=== PATIENT | female | born 1935 | race Caucasian/White ===

== ENCOUNTER → 2017-01-05 | Outpatient (CLI) | payer MEDICARE, OTHER ==
[~2017-01-05] MED LIST: BISA10SU8 RECTALLY; CRAN405C PO; DIVA125C PO; GABA100C PO; HALOPERIDOL IM; HYDR-3989 PO; HYDR-4246 PO; LEVO50TA11 PO; LIDO76.5 TOP; LORA0.5T86 PO; LORA2DIS6 TOP; MAGN400O4 PO; MEMA10TA12 PO; MENT118G TOP; MIRT15TA6 PO; POLY17PO6 PO; POTA10CA37 PO; PROP10TA10 PO; QUET25TA PO; SENN-152 PO; SULF1TAB42 PO
== END ==
LOC: LABNH.PM 02:20
PROVIDERS: ATTEND Family Medicine
DX: E03.9 Hypothyroidism, unspecified (principal)
CPT/HCPCS: 36415; 84443; P9604

== ENCOUNTER → 2017-01-19 | Outpatient (CLI) | payer MEDICARE, OTHER ==
[2017-01-19 07:26] LABS: ANION GAP 10 MEQ/L (5-15); BUN/CREATININE RATIO 40 RATIO (6-26); CALCIUM 8.8 MG/DL (8.4-10.2); CHLORIDE 109 MEQ/L (98-107); CO2 - CARBON DIOXIDE 28 MEQ/L (22-30); CREATININE 0.7 MG/DL (0.7-1.2); GLOMERULAR FILTRATION RATE 80; GLUCOSE 83 MG/DL (65-110); POTASSIUM 3.9 MEQ/L (3.6-5); SODIUM 147 MEQ/L (134-144)
[2017-01-19 07:35] LABS: PROBNP 311 PG/ML (0-175)
== END ==
LOC: LABNH.PM 06:53
PROVIDERS: ATTEND Family Medicine
DX: R60.0 Localized edema (principal)
CPT/HCPCS: 36415; 80048; 83880; P9604

== ENCOUNTER 2017-02-01 09:30 | Inpatient (IN) | payer MEDICARE, OTHER, MEDICAID ==
[~2017-02-01] VITALS: Ht 162.6 cm; Wt 55.2 kg
--- OUTSIDE RECORDS SUMMARY | 2017-02-01 09:34 | XMS REPORT ---
Author Author Yousif Kelly Organization [employer] Address Unknown Phone Unavailable Care Team Providers Care District Attorney Name Role Phone Yousif Kelly CP Unavailable Allergies, Adverse Reactions, Alerts Substance Reaction Event Type Penicillin Info Not Available Drug Allergy Problems Problem Type Condition Code Onset Dates Condition Status Assessment Encounter for dental examination and cleaning without abnormal findings Z01.20 Active Medications Medication Code System Code Instructions Start Date End Date Status Dosage Synthroid [facility] [id number] not defined Aspercreme [facility] [id number] not defined Fontana [facility] [id number] not defined Namenda [facility] [address]-51 not defined Seroquel [facility] [address]-37 not defined Potassium Chloride [facility] [id number] not defined Bisacodyl [facility] [address] not defined Pyridium [facility] [address]-31 not defined Neurontin [facility] [address]-68 not defined Remeron [facility] [address]-46 not defined Depakote Sprinkles [facility] [id number] not defined Lorazepam [facility] [address]-57 not defined MiraLax [facility] [address]-29 not defined Cranberry [facility] [address] not defined Propranolol HCl [facility] [id number] not defined Procedures Procedure Coding System Code Date PROPHYLAXIS - ADULT CPT-4 D1110 Sep 01, 2016 TOPICAL FLUORIDE VARNISH CPT-4 D1206 Sep 01, 2016 Results No Known Results Summary Purpose [employer] Submission
--- OUTSIDE RECORDS SUMMARY | 2017-02-01 09:34 | XMS REPORT | Continuity of Care Document ---
Author Author [facility] Organization [facility] Address Unknown Phone Unavailable Support Name Relationship Address Phone ART UNGER MD Caregiver [address] [place] [address] [place] [phone] Unavailable WALLY HORN MD Caregiver [address] [place] [address] [place] [address] Unavailable WALLY HORN MD Caregiver [address] [place] [address] [place] [address] Unavailable RENEE ENGLE MD Caregiver [address] [place] [address] Unavailable PANCHO BELTRAN Next Of Kin [address] [place] [address] Insurance Providers Guarantor Huong Beltran Address [address] [place] [address] Email DENIED/NO PORTAL Payer Medicare Policy Number [id number] Subscriber's Name Huong Beltran Relationship 18 Self Effective Date 01 Payer Other A Insurance Policy Number [id number] Subscriber's Name Franky,Huong Garcia Relationship 18 Self Group Number [id number] Advance Directives Directive Response Recorded Date/Time Advanced Directives Type DNR Documentation DPOA for Healthcare 02/19/16 10:15am Ordered Resuscitation Status Full Code, unverified 02/19/16 11:54am Resuscitation Documents on File Yes 02/19/16 12:56pm DPOA for Healthcare Only Y LEONARD 02/19/16 12:56pm Problems Active Problems Medical Problem Onset Date Status Abdominal pain Unknown Acute CAD (coronary artery disease) Unknown Chronic Constipation Unknown Acute Contusion Unknown Acute Dementia Unknown Chronic HCAP (healthcare-associated pneumonia) Unknown Acute Head injury Unknown Acute Hyperthyroidism Unknown Chronic Hypokalemia Unknown Acute Neck muscle strain Unknown Acute Recent urinary tract infection Unknown Chronic Past Problems Medical Problem Onset Date Left lower lobe pneumonia Unknown Medications Current Home Medications Medication Dose Units Route Directions Days Qty Instructions Start Date Acetaminophen 500 Mg Tablet 500 Mg Oral Every 4 Hours as needed for Pain 12/19/15 Acetaminophen 500 Mg Tablet 500 Mg Oral Three Times A Day Ativan Topical 1 Mg Topically Every 4 Hours as needed for Anxiety 10/08/15 Bisacodyl 10 Mg Supp.rect 1 Supp Rectally Daily as needed for Constipation 02/19/16 Cephalexin 500 Mg Tablet 1 Tab Oral Three Times A Day for Pneumonia 21 Tablet 02/20/16 Cranberry Extract (Cranberry) 405 Mg Capsule 405 Mg Oral Twice A Day 02/19/16 Divalproex Sodium 125 Mg Cap.sprink 250 Mg Oral Three Times A Day 12/19/15 Gabapentin (Neurontin) 100 Mg Capsule 100 Mg Oral Three Times A Day 09/25/15 Haldol 2.5MG/Ml 0.5 Ml Intramusc Every 6 Hours as needed for Agitation 12/19/15 Hydrocodone/Acetaminophen (Hydrocodon-Acetaminophen 5-325) 1 Each Tablet 1 Tab Oral Three Times A Day as needed for Pain 02/19/16 Levothyroxine Sodium 50 Mcg Tablet 50 Mcg Oral Daily 12/19/15 Memantine Hcl (Namenda) 10 Mg Tablet 10 Mg Oral Twice A Day 09/25 Mirtazapine 15 Mg Tablet 7.5 Mg Oral Bedtime Take 1 tablet, by mouth , 1 time a day at bedtime. 02/19/16 Polyethylene Glycol 3350 (Miralax) 17 Gm Powd.pack 17 G Oral Daily 10/08/15 Propranolol Hcl 10 Mg Tablet 10 Mg Oral Twice A Day 09/25/15 Quetiapine Fumarate 50 Mg Tablet 50 Mg Oral Twice A Day EVERY AFTERNOON AND HS 12/19/15 Sennosides/Docusate Sodium (Senna Plus Tablet) 1 Tab Tablet 2 Tab Oral Twice A Day 10/08/15 Past Home Medications Medication Directions Ordered Status Nitrofurantoin Monohyd/M-Cryst (Nitrofurantoin Simpson-Mcr 100 Mg) 100 Mg Capsule , 100 Mg Oral Twice A Day 02/19/16 Discontinued Social History Social History Problem Response Recorded Date/Time Onset Date Status Hx Substance Use No 02/19/2016 10:15am Not Applicable Not Applicable Hx Alcohol Use No 02/19/2016 10:15am Not Applicable Not Applicable Tobacco Usage none 02/19/2016 1:03pm Not Applicable Not Applicable Query Response Start Date Stop Date Smoking Status Never smoker Hospital Discharge Instructions Instructions: Care Instructions: Reason for Hospitalization: Pneumonia I was in the hospital because (patient own words): UNABLE TO STATE Discharge Diet: Mech soft/Ground meat; regular liquids Discharge Activity: As tolerated Follow Up Appointments: Dr Engle in 1 week Pending Lab / Results: Follow up w/ your PCP Condition at time of discharge: Good Plan of Care Discharge Date 02/20/16 2:46pm Disposition 04 TO [facility] Instructions/Education Provided DI for Pneumonia -- Adult Prescriptions See Medication Section Care Plan and Goals See Discharge Instructions Section Functional Status Query Response Date Recorded Mobility Status Ambulatory w/assist February 19, 2016 12:53pm Assistive Devices None February 19, 2016 12:53pm Activity Limitations Weakness February 19, 2016 12:53pm Feeding Ability Assist February 19, 2016 12:53pm Toileting Ability Assist February 19, 2016 12:53pm Grooming Ability Assist February 19, 2016 12:53pm Dressing Ability Assist February 19, 2016 12:53pm Driving Ability Dependent February 19, 2016 12:53pm Housework Ability Dependent February 19, 2016 12:53pm Meal Preparation Ability Dependent February 19, 2016 12:53pm Stair Climbing Ability Dependent February 19, 2016 12:53pm Ability to complete ADL's impeded by Impaired Mobility Change in Cognition February 19, 2016 12:56pm Cognitive/Perceptual Impairments Impaired vision Chronic confusion February 19, 2016 12:53pm Visual Assistive Devices Glasses February 19, 2016 12:53pm Preferred Method of Learning Listening February 19, 2016 12:53pm Allergies, Adverse Reactions, Alerts Allergen Type Severity Reaction Status Last Updated Penicillin Allergy Unknown Active 02/19/16 Immunizations Query Response on File Recorded Date/Time Hx Influenza Vaccination No 02/19/16 12:58pm Hx Pneumococcal Vaccination No 02/19/16 12:58pm Hx Influenza Vaccination No 02/19/16 12:58pm Influenza Vaccine Hx unknown 02/20/16 12:29pm Tdap Vaccine Hx UNKNOWN 10/08/15 7:31pm Vital Signs Acute Vital Signs Vital Response Date/Time Temperature (Fahrenheit) 98.5 deg F (96.8 - 99.1) 02/20/2016 7:32am Temperature (Calculated Celsius) 36.92630 degrees C (36.0 - 37.3) 02/20/2016 7:32am Pulse Rate (adult) 78 bpm (60 - 100) 02/20/2016 7:58am Respiratory Rate 18 breaths/min (10 - 20) 02/20/2016 7:58am O2 Sat by Pulse Oximetry 95 % (90 - 100) 02/20/2016 7:32am Oxygen Delivery Method Room Air 02/20/2016 7:32am Blood Pressure 132/67 mm Hg 02/20/2016 7:32am Blood Pressure Source Automatic Cuff 02/20/2016 7:32am Height (Feet) 5 feet 02/20/2016 9:40am Height (Inches) 3.00 inches 02/20/2016 9:40am Weight (Kilograms) 51.200 kg 02/20/2016 1:59pm Body Mass Index (BMI) 19.2 02/19/2016 12:55pm Results Laboratory Results Test Name Result Units Flags Reference Collection Date/Time Result Date/ Time Comments Urine WBC 1-3 /HPF 0-5 01/22/2016 9:01/22/2016 10:38am Urine RBC NONE SEEN /HPF 0-3 01/22/2016 9:01/22/2016 10:38am Urine Squamous Epithelial Cells 0-5 01/22/2016 9:20am 01/22/2016 10 :38am Urine Bacteria 3+ H NEGATIVE 01/22/2016 9:01/22/2016 10:38am Urine Amorphous Phosphates MODERATE 01/22/2016 9:20am 01/22/2016 10 :38am Urine Culture Indicated CULT REFLEXED &SETUP 01/22/2016 9: 10:38am White Blood Count 5.5 T/MM3 4.5-11.0 02/20/2016 4:29am 02/20/2016 4: 51am Red Blood Count 3.37 M/MM3 L 4.00-5.20 02/20/2016 4:29am 02/20/2016 4: 51am Hemoglobin 10.7 GM/DL D L 12-16 02/20/2016 4:am 02/20/2016 4:52am Hematocrit 33.4 % D L 36-46 02/20/2016 4:29am 02/20/2016 4:52am Mean Corpuscular Volume 99.1 UM3 80-100 02/20/2016 4:29am 02/20/2016 4: 51am Mean Corpuscular Hemoglobin 31.8 UUG 26-34 02/20/2016 4:29am 2015 4:51am Mean Corpuscular Hemoglobin Concent 32.0 GM/DL 31-37 02/20/2016 4:02/20/2016 4:51am RDW Standard Deviation 43.6 FL 36.9-50.2 02/20/2016 4:02/20/2016 4 :51am Platelet Count 167 T/MM3 130-400 02/20/2016 4:02/20/2016 4:51am Mean Platelet Volume 9.5 UM3 9.4-12.4 02/20/2016 4:02/20/2016 4: 51am Neutrophils (%) (Auto) 57.3 % 33-66 02/20/2016 4:02/20/2016 4: 51am Lymphocytes (%) (Auto) 27.6 % 23-45 02/20/2016 4:02/20/2016 4: 51am Monocytes (%) (Auto) 11.8 % H 0-9.0 02/20/2016 4:02/20/2016 4:51am Eosinophils (%) (Auto) 2.7 % 0-4 02/20/2016 4:02/20/2016 4:51am Basophils (%) (Auto) 0.2 % 0-2 02/20/2016 4:02/20/2016 4:51am Immature Granulocyte % (Auto) 0.4 % 0.0-0.5 02/20/2016 4:2015 4:51am Absolute Neutrophils (auto) 3.2 T/MM3 1.8-7.7 02/20/2016 4:2015 4:51am Absolute Lymphocytes (auto) 1.5 T/MM3 1-4.8 02/20/2016 4:2015 4:51am Absolute Monocytes (auto) 0.7 T/MM3 0-0.8 02/20/2016 4:02/20/2016 4:51am Absolute Eosinophils (auto) 0.2 T/MM3 0-0.5 02/20/2016 4:2015 4:51am Absolute Basophils (auto) 0.0 T/MM3 0-0.2 02/20/2016 4:02/20/2016 4:51am Absolute Immature Granulocyte (auto 0.02 T/MM3 0.00-0.03 02/20/2016 4: 02/20/2016 4:51am Icterus Index < 2 0-7 02/20/2016 4:02/20/2016 5:04am Chemistry Specimen Hemolysis < 15 0-25 02/20/2016 4:02/20/2016 5 :04am 0-25: Specimen Exhibited No Hemolysis. Turbidity < 20 0-20 02/20/2016 4:02/20/2016 5:04am Sodium Level 140 MEQ/L 134-144 02/20/2016 4:02/20/2016 5:04am Potassium Level 3.4 MEQ/L L 3.6-5 02/20/2016 4:02/20/2016 5:04am Chloride Level 108 MEQ/L H 98-107 02/20/2016 4:02/20/2016 5:04am Carbon Dioxide Level 27 MEQ/L 22-30 02/20/2016 4:02/20/2016 5: 04am Anion Gap 5 MEQ/L 5-15 02/20/2016 4:02/20/2016 5:04am Blood Urea Nitrogen 14.0 MG/DL 7-17 02/20/2016 4:02/20/2016 5: 04am Creatinine 0.6 MG/DL L 0.7-1.2 02/20/2016 4:02/20/2016 5:04am BUN/Creatinine Ratio 23 RATIO 6-26 02/20/2016 4:02/20/2016 5:04am Glomerular Filtration Rate Calc 96 02/20/2016 4:02/20/2016 5: 04am Glucose Level 88 MG/DL 65-110 02/20/2016 4:02/20/2016 5:04am Calculated Osmolality 269 MOSM/KG 261-280 02/20/2016 4:02/20/2016 5:04am Calcium Level 8.0 MG/DL D L 8.4-10.2 02/20/2016 4:02/20/2016 5:06am Total Bilirubin 0.50 MG/DL 0.20-1.30 02/19/2016 10:45am 02/19/2016 11: 04am Alkaline Phosphatase 92 U/L 38-126 02/19/2016 10:45am 02/19/2016 11: 04am Total Protein 6.8 G/DL 6.3-8.2 02/19/2016 10:45am 02/19/2016 11:04am Albumin 3.4 G/DL L 3.5-5.0 02/19/2016 10:45am 02/19/2016 11:04am Globulin 3.4 G/DL 2.4-3.6 02/19/2016 10:45am 02/19/2016 11:04am Albumin/Globulin Ratio 1.0 RATIO L 1.1-2.2 02/19/2016 10:45am 2015 11:04am Aspartate Amino Transf (AST/SGOT) 35 U/L 14-36 02/19/2016 10:45am 02/18 11:04am Alanine Aminotransferase (ALT/SGPT) 26 U/L 9-52 02/19/2016 10:45am 11:04am Magnesium Level 2.2 MG/DL 1.6-2.3 02/19/2016 10:45am 02/19/2016 2:03pm Plasma Lactate 2.0 MMOL/L 0.6-2.2 02/19/2016 7:12pm 02/19/2016 8:00pm Procalcitonin 0.05 NG/ML 02/19/2016 7:12pm 02/19/2016 8:18pm PCT </= 0.5 ng/mL - sepsis not likely; PCT >0.5 and </=2 ng/mL - sepsis possible; PCT >2 ng/mL - sepsis likely; PCT >/=10 ng/mL - systemic inflammatory response - sepsis or septic shock highly indicated. Thyroid Stimulating Hormone (TSH) 0.39 MIU/L D L 0.47-4.68 02/19/2016 10: 32am 02/19/2016 3:07pm Prealbumin 15.1 MG/DL L 17.6-36.0 02/19/2016 10:32am 02/19/2016 1:36pm Stool Campylobacter PCR NEGATIVE NEGATIVE 02/19/2016 12:43pm 2015 2:09pm Stool C. difficile Toxin (PCR) NEGATIVE NEGATIVE 02/19/2016 12:43pm 02/19/2016 2:09pm Stool Plesiomonas shigelloides PCR NEGATIVE NEGATIVE 02/19/2016 12: 43pm 02/19/2016 2:09pm Stool Salmonella PCR NEGATIVE NEGATIVE 02/19/2016 12:43pm 02/19/2016 2:09pm Stool Vibrio (PCR) NEGATIVE NEGATIVE 02/19/2016 12:43pm 02/19/2016 2: 09pm Stool Vibrio cholera (PCR) NEGATIVE NEGATIVE 02/19/2016 12:43pm 02/18 2:09pm Stool Yersinia enterocolitica (PCR) NEGATIVE NEGATIVE 02/19/2016 12: 43pm 02/19/2016 2:09pm Stool Enteroaggregative E. coli PCR NEGATIVE NEGATIVE 02/19/2016 12: 43pm 02/19/2016 2:09pm Stool Enteropathogenic E. coli (PCR NEGATIVE NEGATIVE 02/19/2016 12: 43pm 02/19/2016 2:09pm Stool Enterotoxigenic Ecoli PCR NEGATIVE NEGATIVE 02/19/2016 12:43pm 02/19/2016 2:09pm Stool E. coli Shiga Toxins NEGATIVE NEGATIVE 02/19/2016 12:43pm 02/18 2:09pm Stool E coli O157 PCR N/A NA/NEG 02/19/2016 12:43pm 02/19/2016 2: 09pm Stool Shigella/EIEC (PCR) NEGATIVE NEGATIVE 02/19/2016 12:43pm 2015 2:09pm Stool Cryptosporidium PCR NEGATIVE NEGATIVE 02/19/2016 12:43pm 2015 2:09pm Stool Cyclospora species Detection NEGATIVE NEGATIVE 02/19/2016 12: 43pm 02/19/2016 2:09pm Stool Entamoeba (PCR) NEGATIVE NEGATIVE 02/19/2016 12:43pm 2015 2:09pm Stool Giardia Lamblia PCR NEGATIVE NEGATIVE 02/19/2016 12:43pm 2015 2:09pm Stool Adenovirus (PCR) NEGATIVE NEGATIVE 02/19/2016 12:43pm 2015 2:09pm Stool Astrovirus (PCR) NEGATIVE NEGATIVE 02/19/2016 12:43pm 2015 2:09pm Stool Norovirus GI/GII PCR NEGATIVE NEGATIVE 02/19/2016 12:43pm 02/18 2:09pm Stool Rotavirus A PCR NEGATIVE NEGATIVE 02/19/2016 12:43pm 2015 2:09pm Stool Sapovirus (PCR) NEGATIVE NEGATIVE 02/19/2016 12:43pm 2015 2:09pm Urine Collection Type STRAIGHT CATH 02/19/2016 12:43pm 02/19/2016 12:52pm Urine Color YELLOW YELLOW 02/19/2016 12:43pm 02/19/2016 12:52pm Urine Turbidity SL CLOUDY CLEAR 02/19/2016 12:43pm 02/19/2016 12: 52pm Urine Specific [place] 1.020 1.015-1.025 02/19/2016 12:43pm 2015 12:52pm Urine pH 8.0 5.0-8.0 02/19/2016 12:43pm 02/19/2016 12:52pm Urine Leukocyte Esterase NEGATIVE NEGATIVE 02/19/2016 12:43pm 2015 12:52pm Urine Nitrite NEGATIVE NEGATIVE 02/19/2016 12:43pm 02/19/2016 12: 52pm Urine Protein NEGATIVE NEGATIVE 02/19/2016 12:43pm 02/19/2016 12: 52pm Urine Glucose (UA) NEGATIVE NEGATIVE 02/19/2016 12:43pm 02/19/2016 12 :52pm Urine Ketones 1+ A NEGATIVE 02/19/2016 12:43pm 02/19/2016 12:52pm Urine Urobilinogen 0.2 EU/DL NORMAL 02/19/2016 12:43pm 02/19/2016 12: 52pm Urine Bilirubin NEGATIVE NEGATIVE 02/19/2016 12:43pm 02/19/2016 12: 52pm Urine Blood NEGATIVE NEGATIVE 02/19/2016 12:43pm 02/19/2016 12:52pm Urinalysis Comment MICROSCOPIC NOT IND. 02/19/2016 12:43pm 2015 12:52pm Microbiology Results Procedure Source Organism/Result Collection Date/Time Result Date/Time Result Status Urine Culture Urine, Voided-Not Cc-Midstream ESCHERICHIA COLI, ESBL POS 9:20am 01/24/2016 7:09am Final Blood Culture Peripheral/Iv Start NO GROWTH AFTER 24 HOURS 02/19/2016 10: 45am 02/20/2016 10:50am Preliminary Name: HUONG BELTRAN Unit #: [id number] : 1935 Sex: F Admit Date: Loc / Svc: ED Discharge Date: DIAGNOSTIC IMAGING REPORT Report #: [id number] [facility] STEPHANIE Fowler Indication: ITS.REASON: fever, sepsis PROCEDURE: CHEST 1 VIEW: Encounter: Initial Comparison: None Findings: Airspace consolidation in the left lower lobe with a small left effusion. Prominent interstitial markings are seen bilaterally suggesting fibrosis or COPD. No pneumothorax. Linear probable scar in the right middle lobe. Cardiac silhouette is mildly enlarged. Mediastinal contours are normal. Pulmonary vascularity is normal. Impression: Left lower lobe air space consolidation could represent pneumonia or aspiration. Small left effusion. . Procedures Procedure Status Date Provider(s) ROUTINE VENIPUNCTURE Completed 11/26/15 ASSAY THYROID STIM HORMONE Completed 11/26/15 CT HEAD/BRAIN W/O DYE Completed 12/19/15 CT NECK SPINE W/O DYE Completed 12/19/15 EMERGENCY DEPT VISIT Completed 12/19/15 ROUTINE VENIPUNCTURE Completed 01/21/16 ASSAY THYROID STIM HORMONE Completed 01/21/16 [id number] TRIP CHARGE. Completed 01/21/16 URINALYSIS AUTO W/SCOPE Completed 01/22/16 URINE CULTURE/COLONY COUNT Completed 01/22/16 URINE BACTERIA CULTURE Completed 01/22/16 MICROBE SUSCEPTIBLE SANDY Completed 01/22/16 METABOLIC PANEL TOTAL CA Completed 02/13/16 Encounters Encounter Location Arrival/Admit Date Discharge/Depart Date Attending Provider Discharged Inpatient (obs) [facility] 02/19/16 11:51am 02/20/16 2 :46pm WALLY HORN MD [facility] 02/13/16 12:18pm RENEE ENGLE MD [facility] 01/22/16 10:19am RENEE ENGLE MD [facility] 01/21/16 2:00am RENEE ENGLE MD Departed Emergency Room [facility] 12/19/15 6:56pm 12/19/15 9: 29pm GIOVANNI UNGER MD [facility] 11/26/15 12:17am RENEE ENGLE MD
--- NOTE | 2017-02-01 09:55 | NUR ---
DR CORTES IN
--- NOTE | 2017-02-01 10:05 | NUR ---
REPORT TO SHAW VALERA
--- NOTE | 2017-02-01 10:07 | ERPDOC ---
Departure Disposition Decision Date: February 01, 2017 Disposition Decision Time: 12:35 Disposition: 02 TO [facility] Impression Impression Impression: Primary Impression: Femur fracture, right Encounter type: initial encounter Femur location: neck Fracture type: closed Qualified Codes: S72.001A - Fracture of unspecified part of neck of right femur, initial encounter for closed fracture Severity: Moderate Condition: Stable Seen By: Physician only Referrals: RENEE CONCEPCION MD (Family) Problems/Meds/Labs Reviewed?: Yes Medications reviewed and manag: Yes Follow up care ordered?: Yes Mental Status: Alert, Confused Scripts Hydrocodone/Acetaminophen ([place] 7.5-325 Tablet) 7.5-325 Tablet 1 TAB PO Q4H, #30 TAB 0 Refills Prov: DANIEL LIANG MD 02/05/17 HPI - Fall/Injury General Chief Complaint: Fall Stated Complaint: FALL Time Seen by Provider: 09:45 Source: family, RN/MD, EMS Exam Limitations: no limitations HPI - Fall/Injury Initial Comments 82yo woman presented to the ER by EMS for a fall injury. Pt stood up in the cafeteria at the [facility] then fell. [facility] thought pt had fractured her right femur, so they called EMS to transport. Pt has severe alzheimer's dementia. Has no complaints at this time (was given fentanyl en route). Occurred At: home Onset: Rapid Duration: 1 hr Pain Scale: Now: 0/10, Worst: 6/10 Severity: moderate Injuries/Pain Location: lower extremity Context: tripped Loss of Consciousness: no loss of consciousness Modifying Factors: IMPROVES WITH: immobilization, pain medication, WORSE WITH: jarring, movement Associated Symptoms: denies symptoms Hx of Similar Symptoms: No Allergies: Coded Allergies: Chocolate (Verified Allergy, Unknown, 02/03/17) Penicillins (Verified Allergy, Unknown, 02/01/17) Past History Unable to Obtain PMH Due to: dementia Patient Surgical History Cholecystectomy Past Medical History Metabolic: hyperthyroidism, hypothyroidism Cardiac: CAD GI: gallbladder disease Female: UTI Psychological: dementia, other Family History Family PMH: FOUND: CHF, other Vaccines Hx Influenza Vaccination: No Hx Pneumococcal Vaccination: No Social History Second Hand Exposure: No Occupational Hazard: No Review of Systems Unable to Obtain ROS Due to: dementia Physical Exam General General Nourishment: well nourished, well developed, appears stated age, no acute distress, adult, cachectic General Body Habitus: well groomed Vitals and Pain Weight: Kilograms: 52.500 Height (feet): 5 Height (inches): 5.00 Triage Pain Scale: RN VS reviewed by Provider: Yes Normal Exams: Head: Normocephalic w/o trauma Eyes: Pupils are PERRLA w/ EOMI, No scleral icterus, irritation ENMT: No facial trauma, nasal exudates, pharyngeal erythema Neck: Full range of motion, without adenopathy, JVD Lymphatic: No lymphadenopathy Musculoskeletal: No tenderness, or deformity noted Integumentary: No rashes, hives, or bruising noted Neurologic: Patient is alert, and oriented Psychiatric: Patient exhibits, appropriate attention Respiratory (brief) Respiratory: FOUND: clear all foreman, equal bilaterally, symmetrical, NOT FOUND : rales, wheezes Cardiovascular (brief) Cardiac: FOUND: regular rate, regular rhythm, NOT FOUND: click, gallop, murmur , pedal edema, peripheral edema, rub Capillary Refill: <2 sec Pulses: all distal extremities, equal, strong Musculoskeletal Joint : Side: Bilateral Joint: hip Joint Findings: FOUND: ROM limited, NOT FOUND: deformity, discoloration, instability, laceration, pain, swelling Differential Diagnoses Considering: Abrasion, Contusion, Dislocation, Fracture, Orthostatic Changes, UTI, Vasovagal Progress Results/Orders Orders Procedure Category Date Status Time Iv Lock (Ed Only) EDM 02/01/17 Transmitted 09:57 Pelvis W/ 2 View RAD 02/01/17 Resulted Bilat. Hips 09:57 Ua, Dip Wreflex LAB 02/01/17 Complete Microsc & Correction Worker 12:03 Cbc W/Auto LAB 02/01/17 Complete Diff-Reflex Manual Cmp - Comprehensive LAB 02/01/17 Complete Metabolic INR LAB 02/01/[address] In Facility: ED ADM 02/01/17 Transmitted Lab Results Laboratory Tests Test 02/01/17 11:57 Urine Collection Type [place] indwelling Urine Color Yellow Urine Turbidity Clear Urine pH 7.0 Urine Specific [place] 1.020 Urine Protein Negative Urine Glucose (UA) Negative Urine Ketones Negative Urine Blood Negative Urine Nitrite Negative Urine Bilirubin Negative Urine Urobilinogen 0.2EU/DL Urine Leukocyte Esterase Negative Urinalysis Comment Microscopic not ind. Consult/PCP Consult/PCP #1: Physician Contacted: Ortho Time Called: 11:21 Time of first response: 12:12 Type of discussion: Phone Consult/PCP Discussion Details Willing to tx pt; request admission to hospitalist. Consult/PCP #2: Physician Contacted: Dr. Liang Time Called: 12:23 Time of first response: 12:30 Type of discussion: Admit Discussion/PCP Discussion Details Will admit pt and consult Ortho. EUGENIA CORTES DO February 01, 2017 10:07
[2017-02-01] MEDS ORDERED: LORA2DIS6 TOP (10:25)
[2017-02-01] MEDS ORDERED: QUET25TA PO (10:25)
[2017-02-01] MEDS ORDERED: HYDR-4072 PO ×2 (10:25)
[2017-02-01] MEDS ORDERED: LEVO100T12 PO (10:25)
[2017-02-01] MEDS ORDERED: QUET50TA PO (10:25)
[2017-02-01] MEDS ORDERED: DICL100G5 TOP (10:25)
--- NOTE | 2017-02-01 10:29 | NUR ---
TO XRY PER CART
--- NOTE | 2017-02-01 11:04 | DI ---
Indication: ITS.REASON: Fall; concern for hip fx. Procedure: PELVIS W/ 2 VIEW BILAT. HIPS: Encounter: Initial Comparison: Abdominal radiograph 09/25/2015, pelvic CT 09/25/2015 Technique: And AP view of the pelvis as well as AP and frog-leg lateral views of the bilateral hips were obtained. Findings: Generalized osteopenia. There is an acute mildly impacted and angulated nondisplaced subcapital fracture of the right femoral neck. The remaining visualized osseous structures appear intact. Mild degenerative arthrosis of the hips and SI joints. Calcified pelvic phleboliths. No focal radiographic apparent soft tissue abnormality. No radiopaque foreign body. Impression: Acute mildly impacted and angulated nondisplaced subcapital fracture of the right femoral neck. .
[2017-02-01 12:21] LABS: BLOOD, URINE NEGATIVE (NEGATIVE); COLOR,URINE YELLOW (YELLOW); LEUKOCYTE ESTERASE ,URINE NEGATIVE (NEGATIVE); NITRITE,URINE NEGATIVE (NEGATIVE); UROBILINOGEN,URINE 0.2 EU/DL (NORMAL)
--- NOTE | 2017-02-01 12:55 | NUR ---
ADMISSION CALLED SURGICAL UNIT CHARGE FOR ADMISSION. AT LUNCH. WILL CALL BACK FOR PATIENT INFORMATION AND BED ASSIGNMENT.
[2017-02-01 12:56] LABS: BASOPHILS % (AUTO) 0.1 % (0-2); EOSINOPHILS # (AUTO) 0.1 T/MM3 (0-0.5); EOSINOPHILS % (AUTO) 1.6 % (0-4); HCT - HEMATOCRIT 41.6 % (36-46); HGB - HEMOGLOBIN 13.5 GM/DL (12-16); IMMATURE GRANULOCYTE # (AUTO) 0.01 T/MM3 (0.00-0.03); IMMATURE GRANULOCYTE % (AUTO) 0.1 % (0.0-0.5); LYMPHOCYTES # (AUTO) 1.4 T/MM3 (1-4.8); LYMPHOCYTES % (AUTO) 17.2 % (23-45); MEAN CORPUSCULAR HGB 31.7 UUG (26-34); MEAN CORPUSCULAR HGB CONC(MCHC 32.5 GM/DL (31-37); MEAN CORPUSCULAR VOLUME 97.7 UM3 (80-100); MEAN PLATELET VOLUME 9.4 UM3 (9.4-12.4); MONOCYTES # (AUTO) 0.4 T/MM3 (0-0.8); NEUTROPHILS #(AUTO)-ABSOLUTE 6.3 T/MM3 (1.8-7.7); RED BLOOD COUNT 4.26 M/MM3 (4.00-5.20); WBC - WHITE BLOOD COUNT 8.3 T/MM3 (4.5-11.0)
--- NOTE | 2017-02-01 13:03 | NUR ---
ADMISSION PATIENT ASSIGNED ROOM 129. REPORT GIVEN TO JAYLA FREEMAN [facility] ARNP UNIT.
[2017-02-01 13:06] LABS: ALBUMIN 3.8 G/DL (3.5-5.0); ALBUMIN/GLOBULIN RATIO 1.1 RATIO (1.1-2.2); ALKALINE PHOSPHATASE 105 U/L (38-126); ALT (SGPT) 37 U/L (9-52); ANION GAP 12 MEQ/L (5-15); AST (SGOT) 24 U/L (14-36); BUN/CREATININE RATIO 29 RATIO (6-26); CALCIUM 9.6 MG/DL (8.4-10.2); CHLORIDE 106 MEQ/L (98-107); CO2 - CARBON DIOXIDE 29 MEQ/L (22-30); CREATININE 0.9 MG/DL (0.7-1.2); GLOMERULAR FILTRATION RATE 60; GLUCOSE 117 MG/DL (65-110); POTASSIUM 4.5 MEQ/L (3.6-5); SODIUM 147 MEQ/L (134-144); TOTAL PROTEIN 7.3 G/DL (6.3-8.2)
[2017-02-01 13:09] LABS: INR 1.09 (0.76-1.04); PROTHROMBIN TIME 11.9 SEC (9.31-12.49)
--- NOTE | 2017-02-01 13:10 | NUR ---
PHYSICIAN VISIT HOSPITALIST IN TO SEE PATIENT.
[2017-02-01] MEDS ORDERED: ONDANSETRON 4mg/2ml INJECTION IV PRN ×2 (13:15→13:45)
[2017-02-01] MEDS ORDERED: BISACODYL 10 MG SUPPOSITORY RECTALLY PRN (13:15)
[2017-02-01] MEDS ORDERED: MILK OF MAGNESIA 30 ML SUSP PO PRN (13:15)
--- NOTE | 2017-02-01 13:24 | HPPDOC ---
HPI - Adult Date DATE: 02/01/17 TIME: 13:17 General Chief Complaint: Fall History of Present Illness This is an 82-year-old female who had a fall at detention this morning. The patient is unable to give any history secondary to her dementia. Per review of records she fell and was then able to move the right leg. Patient was very tender to palpation and sent in from the detention for further evaluation. Upon arrival to the emergency department and review of x-rays she was found to have a hip fracture. Per review of detention records, she was taking her medications as prescribed. Past Medical History Past Medical History Alzheimer's dementia. Hyperthyroidism Chronic UTIs Surgical History Patient's Surgical History: Cholecystectomy Current Medications Home Meds Reported Medications Hydrocodone/Acetaminophen (Hydrocodon-Acetaminoph 7.5-325) 7.5-325 Tablet, 1 TAB PO Q4HR Y for PAIN, TAB 02/01/17 Levothyroxine Sodium (Levothyroxine Sodium) 100 Mcg Tablet, 1 TAB PO ACB, TAB Once daily before breakfast 02/01/17 Lorazepam (Lorazepam) 2 Mg/1 Ml Syringe, 1 MG TOP Q4H Y for AGITATION 02/01/17 Diclofenac Sodium (Voltaren) 100 Gm Gel..gram., 1 APPLIC TOP QID, TUB 02/01/17 Hydrocodone/Acetaminophen (Hydrocodon-Acetaminoph 7.5-325) 7.5-325 Tablet, 1 TAB PO BID for PAIN, TAB 02/01/17 Quetiapine Fumarate (Seroquel) 25 Mg Tablet, 37.5 MG PO HS AND NOON, TAB Take 1 tablet, by mouth, once a day at bedtime. 02/01/17 Quetiapine Fumarate (Seroquel) 50 Mg Tablet, 50 MG PO DAILY, TAB 02/01/17 Sulfamethoxazole/Trimethoprim (Bactrim Ds Tablet) 1 Each Tablet, 1 TAB PO BID for 10 Days 05/20/16 Lorazepam (Lorazepam) 2 Mg/1 Ml Syringe, 1 MG TOP Q4H Y for AGITATION 05/20/16 Menthol (Biofreeze) 118 Ml Gel..ml., 1 APPLIC TOP BID 05/20/16 Divalproex Sodium (Depakote Sprinkle) 125 Mg Capsule, 250 MG PO BID 05/20/16 Potassium Chloride (Potassium Chloride) 10 Meq Capsule.er, 10 MEQ PO DAILY 05/20/16 Lidocaine HCl (Aspercreme) 76.5 Gm Cream..g., 1 APPLIC TOP DAILY 05/20/16 Cranberry Extract (Cranberry) 405 Mg Capsule, 405 MG PO BID 02/19/16 Mirtazapine (Mirtazapine) 15 Mg Tablet, 15 MG PO HS 02/19/16 Sennosides/Docusate Sodium (Senna Plus Tablet) 1 Tab Tablet, 1 TAB PO BID 10/08/15 Polyethylene Glycol 3350 (Miralax) 17 Gm Powd.pack, 17 G PO BID 10/08/15 Gabapentin (Neurontin) 100 Mg Capsule, 100 MG PO TID 09/25/15 Propranolol HCl (Propranolol HCl) 10 Mg Tablet, 10 MG PO BID 09/25/15 Memantine HCl (Namenda) 10 Mg Tablet, 10 MG PO BID 09/25/15 Allergies: Coded Allergies: Penicillins (Verified Allergy, Unknown, 02/01/17) Family History Family History: Mothercongestive heart failure Fatherdeceased from a farm accident in his 60s Social History Smoking Status: Never smoker Does patient use chewing tobac: No Second Hand Exposure: No Substance Use Type: does not use Alcohol Intake: none Marital Status: Housing: detention Occupational Hazard: No Review of Systems Unable to Obtain ROS Due to: dementia Physical Exam General Vital Signs Vital Signs Date Time Temp Pulse Resp B/P Pulse Ox O2 Delivery O2 Flow Rate FiO2 02/01/17 13:00 90 16 167/84 96 Room Air 02/01/17 09:32 97.9 Height (Feet): 5 Height (Inches): 5.00 Comments Gen.--she is awake alert confused in no acute distress HEENT--PERRLA EOMI CV--regular rate and rhythm Lungs--clear auscultation bilaterally Abdomen--benign Extremities--right lower extremity is externally rotated with tenderness to palpation the right hip. There is no edema cyanosis or clubbing. Neurological--cranial nerves II through XII are grossly intact Rectal--deferred Genitourinary--deferred Skin--is warm dry and intact Neurologic RN Documented GCS Eye Opening: (4)Spontaneous Verbal: (4)Confused Motor: (6)Obeys Commands Total: Laboratory Laboratory Tests Test 02/01/17 11:57 02/01/17 12:47 Urine Collection Type Dewey indwelling Urine Color Yellow Urine Turbidity Clear Urine pH 7.0 Urine Specific [place] 1.020 Urine Protein Negative Urine Glucose (UA) Negative Urine Ketones Negative Urine Blood Negative Urine Nitrite Negative Urine Bilirubin Negative Urine Urobilinogen 0.2EU/DL Urine Leukocyte Esterase Negative Urinalysis Comment Microscopic not ind. White Blood Count 8.3T/MM3 Red Blood Count 4.26M/MM3 Hemoglobin 13.5GM/DL Hematocrit 41.6% Mean Corpuscular Volume 97.7UM3 Mean Corpuscular Hemoglobin 31.7UUG Mean Corpuscular Hemoglobin Concent 32.5GM/DL RDW Standard Deviation 44.3FL Platelet Count 156T/MM3 Mean Platelet Volume 9.4UM3 Immature Granulocyte % (Auto) 0.1% Neutrophils (%) (Auto) 76.0% Lymphocytes (%) (Auto) 17.2% Monocytes (%) (Auto) 5.0% Eosinophils (%) (Auto) 1.6% Basophils (%) (Auto) 0.1% Absolute Immature Granulocyte (auto 0.01T/MM3 Absolute Neutrophils (auto) 6.3T/MM3 Absolute Lymphocytes (auto) 1.4T/MM3 Absolute Monocytes (auto) 0.4T/MM3 Absolute Eosinophils (auto) 0.1T/MM3 Absolute Basophils (auto) 0.0T/MM3 Prothromb Time International Ratio 1.09 Turbidity < 20 Sodium Level 147MEQ/L Potassium Level 4.5MEQ/L Chloride Level 106MEQ/L Carbon Dioxide Level 29MEQ/L Anion Gap 12MEQ/L Blood Urea Nitrogen 26.0MG/DL Creatinine 0.9MG/DL Glomerular Filtration Rate Calc 60 BUN/Creatinine Ratio 29RATIO Glucose Level 117MG/DL Calculated Osmolality 288MOSM/KG Calcium Level 9.6MG/DL Total Bilirubin 0.40MG/DL Icterus Index < 2 Aspartate Amino Transf (AST/SGOT) 24U/L Alanine Aminotransferase (ALT/SGPT) 37U/L Alkaline Phosphatase 105U/L Total Protein 7.3G/DL Albumin 3.8G/DL Globulin 3.5G/DL Albumin/Globulin Ratio 1.1RATIO Chemistry Specimen Hemolysis < 15 Assessment & Plan Assessment #1 hip fracture--we'll consult orthopedic surgery. We will make her nothing by mouth after midnight. #2 dementia--we will continue her outpatient medications. #3 chronic recurrent UTIs--patient is currently on Bactrim. Will continue this. #4 CODE STATUS--DO NOT RESUSCITATE #5 hypothyroidism--we will continue her Synthroid. Code Status Full Code, unverified Hospital Course Summary Disclaimer The hospital course summary below is not to be considered part of the above Progress Note. DANIEL LIANG MD February 01, 2017 13:20
--- NOTE | 2017-02-01 13:28 | NUR ---
ADMIT PT ADMITTED TO ROOM 129 AT THIS TIME VIA CART FROM ED. PT TRANSFERRED FROM CART TO BED BY SLIDE BOARD AND ASSIST X2. BED ALARM ON. WILL CONTINUE TO MONITOR.
--- NOTE | 2017-02-01 13:43 | CONSPD ---
Consultation Info Date DATE: 02/01/17 TIME: 13:38 Attending Physician Viry Rollins MD Reason for Consultation: Right hip subcapital fracture with angulation Impression/Recommendation Impression/Recommendation: (1) Femur fracture, right Status: Acute Qualifiers: Encounter type: initial encounter Femur location: neck Fracture type: closed Qualified Codes: S72.001A - Fracture of unspecified part of neck of right femur, initial encounter for closed fracture Recommendation: Right hip endoprosthesis by Dr. Rollins on 02/02/17 NPO after midnight legal malt liquors sales representative to sign consent SCDs IV narcotics for pain management. Risks and benefits of the recommended procedure were discussed with the patient and/or patient's legal malt liquors sales representative. They include: infection, nerve damage, artery damage, stroke, AL, PE, DVT, ileus, continued pain, or risk that the injury may not heal despite surgery. There are also medical risks of anesthesia. Risks are not limited to the above mentioned alone. Ortho HPI HPI Elements HPI 82 year old female fell at the alf this AM causing pain. X-rays in the ER confirm a right hip subcapital fracture displaced and angulated. She cannot provide history due to dementia. Review of Systems Unable to Obtain ROS Due to: dementia Past Medical History Adult Problem List Updates Alzheimer's dementia. Hyperthyroidism Chronic UTIs Surgical History Patient's Surgical History: Cholecystectomy Current Medications Cranberry Extract (Cranberry) 405 Mg Capsule, 405 MG PO BID, (Reported) Last Taken: Unknown Dose on Unknown Date & Time Diclofenac Sodium (Voltaren ) 100 Gm Gel..gram., 1 APPLIC TOP QID, (Reported) Last Taken: Unknown Dose on Unknown Date & Time Divalproex Sodium (Depakote Sprinkle) 125 Mg Capsule, 250 MG PO BID, (Reported) Last Taken: Unknown Dose on Unknown Date & Time Gabapentin (Neurontin) 100 Mg Capsule, 100 MG PO TID, (Reported) Last Taken: Unknown Dose on Unknown Date & Time Hydrocodone/Acetaminophen ( Hydrocodon-Acetaminoph 7.5-325) 7.5-325 Tablet, 1 TAB PO BID, (Reported) Last Taken: Unknown Dose on Unknown Date & Time Hydrocodone/Acetaminophen ( Hydrocodon-Acetaminoph 7.5-325) 7.5-325 Tablet, 1 TAB PO Q4HR PRN for PAIN, ( Reported) Last Taken: Unknown Dose on Unknown Date & Time Levothyroxine Sodium ( Levothyroxine Sodium) 100 Mcg Tablet, 1 TAB PO ACB, (Reported) Once daily before breakfast Last Taken: Unknown Dose on Unknown Date & Time Lidocaine HCl (Aspercreme) 76.5 Gm Cream..g., 1 APPLIC TOP DAILY, (Reported) Last Taken: Unknown Dose on Unknown Date & Time Lorazepam (Lorazepam) 2 Mg/ 1 Ml Syringe, 1 MG TOP Q4H PRN for AGITATION, (Reported) Last Taken: Unknown Dose on 02/01/17 0850 Lorazepam (Lorazepam) 2 Mg/1 Ml Syringe, 1 MG TOP Q4H PRN for AGITATION, (Reported) Last Taken: Unknown Dose on 02/01/17 0900 Memantine HCl (Namenda) 10 Mg Tablet , 10 MG PO BID, (Reported) Last Taken: Unknown Dose on Unknown Date & Time Menthol (Biofreeze) 118 Ml Gel..ml., 1 APPLIC TOP BID, (Reported) Last Taken: Unknown Dose on Unknown Date & Time Mirtazapine (Mirtazapine) 15 Mg Tablet, 15 MG PO HS, (Reported) Last Taken: Unknown Dose on Unknown Date & Time Polyethylene Glycol 3350 ( Miralax) 17 Gm Powd.pack, 17 G PO BID, (Reported) Last Taken: Unknown Dose on Unknown Date & Time Potassium Chloride ( Potassium Chloride) 10 Meq Capsule.er, 10 MEQ PO DAILY, (Reported) Last Taken: Unknown Dose on Unknown Date & Time Propranolol HCl ( Propranolol HCl) 10 Mg Tablet, 10 MG PO BID, (Reported) Last Taken: Unknown Dose on Unknown Date & Time Quetiapine Fumarate ( Seroquel) 50 Mg Tablet, 50 MG PO DAILY, (Reported) Last Taken: Unknown Dose on Unknown Date & Time Quetiapine Fumarate ( Seroquel) 25 Mg Tablet, 37.5 MG PO HS AND NOON, (Reported) Take 1 tablet, by mouth, once a day at bedtime. Last Taken: Unknown Dose on Unknown Date & Time Sennosides/Docusate Sodium ( Senna Plus Tablet) 1 Tab Tablet, 1 TAB PO BID, (Reported) Last Taken: Unknown Dose on Unknown Date & Time Sulfamethoxazole/ Trimethoprim (Bactrim Ds Tablet) 1 Each Tablet, 1 TAB PO BID, (Reported) Last Taken: Unknown Dose on Unknown Date & Time Allergies Allergies: Coded Allergies: Penicillins (Verified Allergy, Unknown, 02/01/17) Family History Family History: Mothercongestive heart failure Fatherdeceased from a farm accident in his 60s Vaccines unknown No UNKNOWN Social History Smoking Status: Never smoker Does patient use chewing tobac: No Second Hand Exposure: No Substance Use Type: does not use Alcohol Intake: none Marital Status: Housing: alf Occupational Hazard: No Physical Exam General General: well nourished, well developed, no acute distress Respiratory FOUND non-labored Cardiovascular FOUND pedal pulses intact Capillary Refill: <2 sec Abdomen Abdominal: FOUND soft Musculoskeletal Musculoskeletal Brief: FOUND: loss of motion, tenderness (right lateral hip) Integumentary FOUND dry, FOUND pink, FOUND warm Neurologic FOUND intact to light touch, FOUND no deficits Psychiatric FOUND other (confused secondary to dementia) Laboratory Laboratory Tests Test 02/01/17 11:57 02/01/17 12:47 Urine Collection Type Dewey indwelling Urine Color Yellow Urine Turbidity Clear Urine pH 7.0 Urine Specific [place] 1.020 Urine Protein Negative Urine Glucose (UA) Negative Urine Ketones Negative Urine Blood Negative Urine Nitrite Negative Urine Bilirubin Negative Urine Urobilinogen 0.2EU/DL Urine Leukocyte Esterase Negative Urinalysis Comment Microscopic not ind. White Blood Count 8.3T/MM3 Red Blood Count 4.26M/MM3 Hemoglobin 13.5GM/DL Hematocrit 41.6% Mean Corpuscular Volume 97.7UM3 Mean Corpuscular Hemoglobin 31.7UUG Mean Corpuscular Hemoglobin Concent 32.5GM/DL RDW Standard Deviation 44.3FL Platelet Count 156T/MM3 Mean Platelet Volume 9.4UM3 Immature Granulocyte % (Auto) 0.1% Neutrophils (%) (Auto) 76.0% Lymphocytes (%) (Auto) 17.2% Monocytes (%) (Auto) 5.0% Eosinophils (%) (Auto) 1.6% Basophils (%) (Auto) 0.1% Absolute Immature Granulocyte (auto 0.01T/MM3 Absolute Neutrophils (auto) 6.3T/MM3 Absolute Lymphocytes (auto) 1.4T/MM3 Absolute Monocytes (auto) 0.4T/MM3 Absolute Eosinophils (auto) 0.1T/MM3 Absolute Basophils (auto) 0.0T/MM3 Prothromb Time International Ratio 1.09 Turbidity < 20 Sodium Level 147MEQ/L Potassium Level 4.5MEQ/L Chloride Level 106MEQ/L Carbon Dioxide Level 29MEQ/L Anion Gap 12MEQ/L Blood Urea Nitrogen 26.0MG/DL Creatinine 0.9MG/DL Glomerular Filtration Rate Calc 60 BUN/Creatinine Ratio 29RATIO Glucose Level 117MG/DL Calculated Osmolality 288MOSM/KG Calcium Level 9.6MG/DL Total Bilirubin 0.40MG/DL Icterus Index < 2 Aspartate Amino Transf (AST/SGOT) 24U/L Alanine Aminotransferase (ALT/SGPT) 37U/L Alkaline Phosphatase 105U/L Total Protein 7.3G/DL Albumin 3.8G/DL Globulin 3.5G/DL Albumin/Globulin Ratio 1.1RATIO Chemistry Specimen Hemolysis < 15 ALANA HELLER February 01, 2017 13:42
[2017-02-01] MEDS ORDERED: CLINDAMYCIN 900mg IVPB 50 ML IV ONE (13:45)
[2017-02-01] MEDS ORDERED: TRANEXAMIC ACID 1,000mg in NS 100ml IV PRN (13:45)
[2017-02-01] MEDS ORDERED: DEXAMETHASONE 4mg/ml - 1ml INJECTION IV ONE (13:45)
[2017-02-01] MEDS ORDERED: NOZIN NASAL SWAB NS ONE (13:45)
[2017-02-01] MEDS: MORPHINE SULFATE 2 MG SYRINGE IV PRN ×4 (13:46→21:16)
--- NOTE | 2017-02-01 13:46 | NUR ---
PAIN MEDICATION PT RECIEVED 2MG OF MORPHINE FOR PAIN THAT THE PATIENT WAS UNABLE TO RATE. PT IS HOLDING HER RIGHT HIP AND MUMBLING TO HER AT THE TIME, ASKING HIM TO RUB IT.
[2017-02-01] MEDS: NORMAL SALINE 1,000 ML IV SCH ×2 (13:47→23:34)
[2017-02-01 13:50] VITALS: BP 143/92; PULSE 67; RESP 22; TEMP 96.4; O2SAT 96
[2017-02-01 13:51] VITALS: Ht 162.6 cm; Wt 55.2 kg
--- NOTE | 2017-02-01 13:55 | NUR ---
DR. HOLCOMB IN ROOM DR. HOLCOMB AND KELLY PETERS IN ROOM WITH THE PATIENT AT THIS TIME. PT'S CONVERSED WITH THEM.
[2017-02-01] MEDS: GABAPENTIN 100 MG CAPSULE PO SCH ×2 (15:03→21:16)
--- NOTE | 2017-02-01 16:00 | DI ---
Indication: ITS.REASON: preop Procedure: CHEST 1 VIEW: Encounter: Initial Comparison: 02/19/2016 Technique: A single portable AP view of the chest was obtained. Findings: Lungs and airways: Normal lung volumes. Unchanged right midlung zone linear fibrosis/scarring. No other focal/confluent airspace consolidation. Normal pulmonary vasculature. Pleura: No pleural effusion or pneumothorax. Heart and mediastinum: The cardiomediastinal silhouette and great vessels are within normal limits. Osseous structures and soft tissues: No acute osseous abnormality is seen. Impression: No acute cardiopulmonary process. .
--- NOTE | 2017-02-01 16:12 | NUR ---
Pain Pt unable to rate pain, but Pt holding leg at this time stating "it hurts." 2mg Morphine IV given at this time. Family at bedside, will continue to monitor.
[2017-02-01 16:35] VITALS: BP 195/97; PULSE 111; RESP 20; TEMP 98.2; O2SAT 94
[2017-02-01 16:40] VITALS: PULSE 111; RESP 20
[2017-02-01] MEDS ORDERED: METOPROLOL 5mg/5ml INJECTION IV ONE (16:45)
[2017-02-01] MEDS ORDERED: NOZIN NASAL SWAB NS SCH ×2 (17:00)
[2017-02-01] MEDS: DICLOFENAC 1% TOPICAL GEL 100 G TUBE TOP SCH ×2 (17:24→21:19)
[2017-02-01 17:38] VITALS: BP 160/94; PULSE 87
--- NOTE | 2017-02-01 17:42 | NUR ---
Summary Pt not oriented, hx of Alzheimers. Family has been present in room, at bedside holding Pts hand. Pt on RA. Pt given PRN pain medication as ordered, Pt unable to rate pain but holds onto right leg and says "it hurts." Pt hypertensive this afternoon, Dr. Evans notified at that time- see provider notification. Dewey catheter in place with adequate urine output. Consent signed by (DPOA.) Pt combative at times of repositioning. Ice pack in room for right hip, Pt has refused to use ice pack. Side rails up X3, call light w/in reach, bed alarm on.
[2017-02-01 21:10] VITALS: BP 152/75; PULSE 79; RESP 16; TEMP 98.9
[2017-02-01] MEDS: MEMANTINE 10 MG TABLET PO SCH (21:16)
[2017-02-01] MEDS: PROPRANOLOL 10 MG TABLET PO SCH (21:16)
[2017-02-01] MEDS: SENNA + DOCUSATE TAB PO SCH (21:16)
[2017-02-01] MEDS: DIVALPROEX SPRINKLE 125 MG CAPSULE PO SCH (21:16)
[2017-02-01] MEDS: MIRTAZAPINE 15 MG TABLET PO SCH (21:17)
[2017-02-01] MEDS: QUETIAPINE 25 MG TABLET PO SCH (21:17)
[2017-02-01] MEDS: POLYETHYL.GLYCOL 3350 PACKET 17gm PO SCH (21:19)
[2017-02-01 23:41] VITALS: BP 178/83; PULSE 85; RESP 16; TEMP 99.1; O2SAT 90
[2017-02-02] VITALS (37 sets, daily range): BP systolic 130–199; BP diastolic 80–117; PULSE 72–113; RESP 9–22; TEMP 96.8–99.5; O2SAT 81–99
--- NOTE | 2017-02-02 05:19 | NUR ---
PROVIDER NOTIFICATION Notified Dr Albert via EPS that patient has experienced a 7 beat run of atrial tachycardia. Dr. Albert directed to continue monitoring patient. Patient resting quietly at this time. in room at bedside.
[2017-02-02 05:21] LABS: BASOPHILS % (AUTO) 0.4 % (0-2); EOSINOPHILS # (AUTO) 0.2 T/MM3 (0-0.5); HCT - HEMATOCRIT 39.2 % (36-46); IMMATURE GRANULOCYTE # (AUTO) 0.01 T/MM3 (0.00-0.03); IMMATURE GRANULOCYTE % (AUTO) 0.1 % (0.0-0.5); LYMPHOCYTES # (AUTO) 1.4 T/MM3 (1-4.8); LYMPHOCYTES % (AUTO) 20.9 % (23-45); MEAN CORPUSCULAR HGB 31.8 UUG (26-34); MEAN CORPUSCULAR HGB CONC(MCHC 33.2 GM/DL (31-37); MEAN CORPUSCULAR VOLUME 95.8 UM3 (80-100); MEAN PLATELET VOLUME 9.6 UM3 (9.4-12.4); MONOCYTES # (AUTO) 0.5 T/MM3 (0-0.8); MONOCYTES % (AUTO) 7.2 % (0-9.0); NEUTROPHILS #(AUTO)-ABSOLUTE 4.6 T/MM3 (1.8-7.7); NEUTROPHILS % (AUTO) 68.4 % (33-66); RED BLOOD COUNT 4.09 M/MM3 (4.00-5.20); WBC - WHITE BLOOD COUNT 6.7 T/MM3 (4.5-11.0)
--- NOTE | 2017-02-02 05:22 | NUR ---
SHIFT SUMMARY PATIENT IS ALERT, BUT IS NOT ORIENTED THIS SHIFT. VITAL SIGNS HAVE BEEN STABLE ON ROOM AIR. BEDREST HAS BEEN MAINTAINED THIS SHIFT. PATIENT MADE NPO AT MIDNIGHT IN ANTICIPATION OF SURGERY THIS AM. FLACC PAIN SCALE UTILIZED TO DETERMINE LEVEL OF DISCOMFORT. PO PAIN MEDICATION GIVEN ON SCHEDULE WITH IV PAIN MEDICATION UTILIZED BETWEEN DOSES. PATIENT TAKES MEDICATIONS CRUSHED IN PUDDING OR PEANUT BUTTER. PATIENT IS VERY CONFUSED AND UNCOOPERATIVE WITH CARES. FAMILY AT BEDSIDE HAVE BEEN HELPFUL IN COMPLETING CARES. PATIENT HAD A 9 BEAT RUN OF ATRIAL TACHYCARDIA YESTERDAY AT 1459 THAT WAS UNDOCUMENTED. PATIENT HAD ANOTHER 7 BEAT RUN OF ATRIAL TACHYCARDIA THIS MORNING; PROVIDER WAS NOTIFIED AND I WAS DIRECTED TO CONTINUE MONITORING PATIENT. IS AT BEDSIDE. WILL CONTINUE TO MONITOR.
[2017-02-02 05:26] LABS: ANION GAP 10 MEQ/L (5-15); BUN/CREATININE RATIO 27 RATIO (6-26); CALCIUM 8.7 MG/DL (8.4-10.2); CHLORIDE 108 MEQ/L (98-107); CO2 - CARBON DIOXIDE 22 MEQ/L (22-30); CREATININE 0.6 MG/DL (0.7-1.2); GLOMERULAR FILTRATION RATE 96; GLUCOSE 106 MG/DL (65-110); POTASSIUM 4.1 MEQ/L (3.6-5); SODIUM 140 MEQ/L (134-144)
[2017-02-02] MEDS: LEVOTHYROXINE 100 MCG TABLET PO SCH (06:17)
[2017-02-02] MEDS: MORPHINE SULFATE 2 MG SYRINGE IV PRN ×2 (06:27→18:28)
--- NOTE | 2017-02-02 07:51 | PNPDOC ---
Subjective Date DATE: 02/02/17 TIME: 07:48 Subjective Episode of atrial tachycardia on the monitor last night. Asymptomatic. Currently resting. Scheduled for surgery today. Case discussed with at bedside. Objective Vital Signs Vital signs Vital Signs Date Time Temp Pulse Resp B/P Pulse Ox O2 Delivery O2 Flow Rate FiO2 02/02/17 07:15 97 Nasal Cannula 1.00 02/02/17 07:08 99.5 85 18 160/87 Height (Feet): 5 Height (Inches): 4.00 Weight (Kilograms): 51.200 General Comments General--sleeping CV--regular rate and rhythm Lungs--clear auscultation bilaterally Abdomen--benign Extremities--RLE externally rotated Neurological--nonfocal Rectal--deferred Genitourinary--deferred Skin--warm dry and intact without any evidence of rashes Laboratory Laboratory Laboratory Tests 02/01/17 12:47 02/02/17 04:21 Laboratory Tests 02/01/17 12:47 02/02/17 04:21 Assessment & Plan Assessment #1 hip fracture--for surgery today. #2 dementia--we will continue her outpatient medications. #3 chronic recurrent UTIs--restart Bactrim as OP. #4 CODE STATUS--DO NOT RESUSCITATE #5 hypothyroidism--we will continue her Synthroid. Code Status Do Not Resuscitate Hospital Course Summary Disclaimer The hospital course summary below is not to be considered part of the above Progress Note. DANIEL LIANG MD February 02, 2017 07:51
[2017-02-02] MEDS: POTASSIUM CL. 10mEq CAP PO SCH (08:00)
[2017-02-02] MEDS ORDERED: METOPROLOL 5mg/5ml INJECTION IV ONE (08:00)
[2017-02-02] MEDS: MEMANTINE 10 MG TABLET PO SCH ×2 (08:03→20:52)
[2017-02-02] MEDS: PROPRANOLOL 10 MG TABLET PO SCH ×2 (08:03→20:52)
[2017-02-02] MEDS: DIVALPROEX SPRINKLE 125 MG CAPSULE PO SCH ×2 (08:03→20:51)
[2017-02-02] MEDS: GABAPENTIN 100 MG CAPSULE PO SCH ×3 (08:03→20:52)
[2017-02-02] MEDS: POLYETHYL.GLYCOL 3350 PACKET 17gm PO SCH ×2 (08:03→20:53)
[2017-02-02] MEDS: SENNA + DOCUSATE TAB PO SCH ×2 (08:03→20:52)
[2017-02-02] MEDS: QUETIAPINE 50 MG TABLET PO SCH (08:04)
--- NOTE | 2017-02-02 08:28 | NUR ---
OFF UNIT PT TO SURGERY WITH PREOP STAFF. AND DAUGHTER AT BEDSIDE. WILL CONTINUE TO MONITOR.
[2017-02-02] MEDS: NORMAL SALINE 1,000 ML IV SCH ×2 (09:11→15:53)
[2017-02-02] MEDS: DICLOFENAC 1% TOPICAL GEL 100 G TUBE TOP SCH ×4 (09:25→20:54)
--- NOTE | 2017-02-02 09:55 | NUR ---
CM CM ATTEMPTED VISIT. PT IS AT PROCEDURE. NO FAMILY PRESENT AT BEDSIDE. CM CONTACT INFORMATION AND [facility] LETTER ARE LEFT AT THE BEDSIDE.
[2017-02-02] MEDS: FENTANYL 100mcg/2ml INJECTION IV PRN ×2 (11:55→12:22)
[2017-02-02] MEDS: QUETIAPINE 25 MG TABLET PO SCH ×2 (12:00→20:51)
--- NOTE | 2017-02-02 12:01 | ANESPREOP ---
Anesthesia Record Date and Time DATE: 02/02/17 TIME: 11:54 Pre-Op Diagnosis Right hip subcapital fracture with angulation Proposed Surgical Procedure Allergies: Coded Allergies: Penicillins (Verified Allergy, Unknown, 02/01/17) Ht/Wt/BMI Height: 5 ' 4.00 " Weight: 51.200 kg BMI: 18.8 kg/m2 Vital Signs Date Time Temp Pulse Resp B/P Pulse Ox O2 Delivery O2 Flow Rate FiO2 02/02/17 08:45 97.8 77 21 173/82 90 Room Air 02/02/17 07:15 1.00 Medications Inpatient Medications Current Medications Medications (Trade) Dose Ordered Sig/Jennifer Start Time Stop Time Status Last Admin Dose Admin Sodium Chloride (Normal Saline IV) 1,000 ml @ 100 mls/hr Q10H 02/01/17 13:14 02/02/17 09:11 100 MLS/HR Acetaminophen (Tylenol Regular Strength) 1-2 tabs Q5H PRN 02/01/17 13:15 Morphine Sulfate (Morphine) 1-2 Q2H PRN 02/01/17 13:15 02/02/17 06:27 2 MG Ondansetron HCl (Zofran) 4 mg Q6H PRN 02/01/17 13:15 Magnesium Hydroxide (Mom) 30 ml DAILY PRN 02/01/17 13:15 Bisacodyl (Dulcolax) 10 mg DAILY PRN 02/01/17 13:15 Diclofenac Sodium (Voltaren 1% Gel) 1 applic QID 02/01/17 17:00 02/01/17 21:19 1 APPLIC Divalproex Sodium (Depakote Sprinkle) 250 mg BID 02/01/17 21:00 02/01/17 21:16 250 MG Gabapentin (Neurontin) 100 mg TID 02/01/17 15:00 02/01/17 21:16 100 MG Acetaminophen/ Hydrocodone Bitart ([place] 7.5/325) 1 tab BID 02/01/17 21:00 02/01/17 21:17 1 TAB Acetaminophen/ Hydrocodone Bitart ([place] 7.5/325) 1 tab Q4HR PRN 02/01/17 13:15 02/01/17 15:04 1 TAB Levothyroxine Sodium (Synthroid) 100 mcg ACB 02/02/17 06:30 Memantine (Namenda) 10 mg BID 02/01/17 21:00 02/01/17 21:16 10 MG Mirtazapine (Remeron) 15 mg HS 02/01/17 22:00 02/01/17 21:17 15 MG Polyethylene Glycol (Miralax) 17 g BID 02/01/17 21:00 02/01/17 21:19 17 G Potassium Chloride (Micro-K) 10 meq WB 02/02/17 08:00 Propranolol HCl (Inderal) 10 mg BID 02/01/17 21:00 02/01/17 21:16 10 MG Quetiapine Fumarate (Seroquel) 37.5 mg 12,22 02/01/17 22:00 02/01/17 21:17 37.5 MG Quetiapine Fumarate (Seroquel) 50 mg DAILY 02/02/17 09:00 Senna/Docusate Sodium (Senna Plus) 1 tab BID 02/01/17 21:00 02/01/17 21:16 1 TAB Hydromorphone HCl (Dilaudid) 0.5-1 mg IV Q1H PRN pain Q1H PRN 02/01/17 13:45 Ondansetron HCl (Zofran) 4 mg Q6H PRN 02/01/17 13:45 Tranexamic Acid (Tranexamic Acid 1 G Ivpb) 1,000 mg INTRAOP PRN 02/01/17 13:45 Tranexamic Acid (Tranexamic Acid 1 G Ivpb) 1,000 mg O PRN 02/01/17 13:45 Multi-Ingredient Antiseptic (Nozin Nasal Swab) 1 each Q8HR 02/01/17 17:00 Multi-Ingredient Antiseptic (Nozin Nasal Swab) 1 each Q8HR 02/01/17 17:00 Cranberry Extract (Cranberry) 405 Mg Capsule, 405 MG PO BID, (Reported) Last Taken: on Unknown Date & Time Diclofenac Sodium (Voltaren) 100 Gm Gel..gram., 1 APPLIC TOP QID, (Reported) Last Taken: on Unknown Date & Time Divalproex Sodium (Depakote Sprinkle) 125 Mg Capsule, 250 MG PO BID, (Reported) Last Taken: on Unknown Date & Time Gabapentin (Neurontin) 100 Mg Capsule, 100 MG PO TID, (Reported) Last Taken: on Unknown Date & Time Hydrocodone/Acetaminophen (Hydrocodon- Acetaminoph 7.5-325) 7.5-325 Tablet, 1 TAB PO BID, (Reported) Last Taken: on Unknown Date & Time Hydrocodone/Acetaminophen (Hydrocodon- Acetaminoph 7.5-325) 7.5-325 Tablet, 1 TAB PO Q4HR PRN for PAIN, (Reported) Last Taken: on Unknown Date & Time Levothyroxine Sodium (Levothyroxine Sodium) 100 Mcg Tablet, 1 TAB PO ACB, (Reported) Once daily before breakfast Last Taken: on Unknown Date & Time Lidocaine HCl (Aspercreme) 76.5 Gm Cream..g., 1 APPLIC TOP DAILY, (Reported) Last Taken: on Unknown Date & Time Lorazepam (Lorazepam) 2 Mg/1 Ml Syringe , 1 MG TOP Q4H PRN for AGITATION, (Reported) Last Taken: on 02/01/17 0850 Lorazepam (Lorazepam) 2 Mg/1 Ml Syringe, 1 MG TOP Q4H PRN for AGITATION, (Reported) Last Taken: on 02/01/17 0900 Memantine HCl (Namenda) 10 Mg Tablet, 10 MG PO BID, (Reported) Last Taken: on Unknown Date & Time Menthol (Biofreeze) 118 Ml Gel..ml., 1 APPLIC TOP BID, (Reported) Last Taken: on Unknown Date & Time Mirtazapine (Mirtazapine) 15 Mg Tablet, 15 MG PO HS, (Reported) Last Taken: on Unknown Date & Time Polyethylene Glycol 3350 (Miralax) 17 Gm Powd.pack, 17 G PO BID, (Reported) Last Taken: on Unknown Date & Time Potassium Chloride (Potassium Chloride) 10 Meq Capsule.er, 10 MEQ PO DAILY, (Reported) Last Taken: on Unknown Date & Time Propranolol HCl (Propranolol HCl) 10 Mg Tablet, 10 MG PO BID, (Reported) Last Taken: on Unknown Date & Time Quetiapine Fumarate (Seroquel) 50 Mg Tablet, 50 MG PO DAILY, (Reported) Last Taken: on Unknown Date & Time Quetiapine Fumarate (Seroquel) 25 Mg Tablet, 37.5 MG PO HS AND NOON, (Reported) Take 1 tablet, by mouth, once a day at bedtime. Last Taken: on Unknown Date & Time Sennosides/Docusate Sodium (Senna Plus Tablet) 1 Tab Tablet, 1 TAB PO BID, (Reported) Last Taken: on Unknown Date & Time Sulfamethoxazole/Trimethoprim (Bactrim Ds Tablet) 1 Each Tablet, 1 TAB PO BID, (Reported) Last Taken: on Unknown Date & Time Currently on Beta Shon: Yes Beta Shon Last Taken: 02/02/17 0815 Medical/Surgical History Anesthesia PMH: Reports: *Hypertension, Anxiety, Hyperlipidemia, Other ( dementia), Thyroid Disease, Denies: *Angina, *Diabetes, *MO, Asthma, Blood Transfusion Reac, CHF, COPD, CVA/Stroke/TIA, Cancer, Cardiac Arrythmia, Deep Vein Thrombosis, Hiatal Hernia, Pacemaker, Reflux, Seizures Smoking Status: Never smoker Use Chewing Tobacco?: No Second Hand Exposure: No Substance Use Type: does not use Alcohol Intake: none Past Surgical History Orthopedic Surgeries: No Abdominal Surgeries: Yes - GALL BLADDER REMOVED Genitourinary Surgeries: No Cardiac Surgeries: No Endocrine Surgeries: No Reproductive Surgeries: No Neurological Surgeries: No Ear Surgeries: No Nose Surgeries: No Throat Surgeries: No Other Surgeries: No - CYST REMOVED FROM BREAST Anesthesia Adverse Reactions: FOUND none Family Hx of Anesthesia Advers: none Hx of Motion Sickness: No Pertinent Findings Laboratory Tests 02/02/17 04:21 Test 02/01/17 12:47 Prothromb Time International Ratio 1.09 (0.76-1.04) EKG Rhythm: Sinus Rhythm Physical Exam Respiratory: Lungs clear Cardiovascular: FOUND Regular rate, rhythm, FOUND Systolic murmur Airway Assessment Mallampati Score: II TMD: 2 Fingerbreadths Neck Extension: Fair Teeth: Chipped Teeth/Crowns Overall Assessment: No Airway Concerns ASA: 3 Plan Anesthesia Plan: GETA Discussion Discussed risks/options/alternatives of anesthesia and questions answered. Patient consents. Nursing pain assessment noted. Present: Family Member, Spouse Attestation Statement Prior to the delivery of any anesthetic medication, I examined the patient, developed the plan, obtained the patient's consent and discussed the risk and benefits of the procedure with the patient/guardian. CONSTANTIN MCCANN CRNA February 02, 2017 11:58
[2017-02-02] MEDS ORDERED: PROPOFOL 200mg 20 ML IV ONE (12:20)
[2017-02-02] MEDS ORDERED: LIDOCAINE 2% (20mg/ml) 5ml PF SDV ONE (12:20)
[2017-02-02] MEDS ORDERED: FENTANYL 100mcg/2ml INJECTION ONE (12:21)
[2017-02-02] MEDS ORDERED: ROCURONIUM 50mg/5ml INJECTION IV ONE (12:22)
[2017-02-02] MEDS ORDERED: EPINEPHRINE 0.25 MG, BUPIVACAINE 0.25% 75 MG, MORPHINE SULFATE 15 MG in NORMAL SALINE 3... INJ ONE (12:45)
[2017-02-02] MEDS ORDERED: CLINDAMYCIN 900mg IVPB 50 ML IV ONE (13:00)
[2017-02-02] MEDS ORDERED: TRANEXAMIC ACID 1,000mg in NS 100ml IV ONE ×2 (13:00→14:00)
[2017-02-02] MEDS ORDERED: KETAMINE 500mg/10ml INJECTION ONE (13:01)
[2017-02-02] MEDS ORDERED: SUGAMMADEX 200 MG/2 ML INJECTION IV ONE (14:03)
--- NOTE | 2017-02-02 14:13 | PDOPERATE ---
Operative Report Date of Operation 02/02/17 Side: Right Preoperative Diagnosis: displaced subcapital femoral hip fx Postoperative Diagnosis Same as preoperative diagnosis. Operation/Procedure: hip hemiarthroplasty (right) Surgeon Lacy Rollins MD Tape Maker KELLY Alejandro Complications None. Anesthesia Plan: GETA Estimated Blood Loss See Anesthesia Record. Fluids Please See Anesthesia Record. Description of Operation Ms. Wilkins and her right hip were identified and marked in the the preoperative holding area. She was then brought back to the operating suite and proper anesthesia was administered. She was then positioned lateral on the operating table. The right lower extremity was then prepped and draped in my normal sterile fashion. Timeout was performed with all operating room personnel. A posterior approach was used. Short external rotators were detached and capsulotomy made. Hip was dislocated and femoral neck osteotomy made below the fracture site. The head and neck fragments were removed. The acetabulum was sized at a 43 and then the proximal femur was prepared with reaming and broaching to a size 6 cemented. Trial head was placed and the hip relocated. She was nice and stable with good leg length. The bone was then prepared for cementing and a KETTY size 6 cemented stem was cemented into place. After curing we trialed with a plus 5 head. This was good with good stability. After final irrigation a final 43 head with plus 5 neck was placed and final reduction preformed. The capsulotomy was closed with 1 ethibond. 1 gm of TXA was allowed to sit in the wound for 5 minutes. 1 gm of vanco was placed into the wound. The muscle facia was repaired with 1 vycral. I then left my assistent to close the subcutaneous tissue with 2-0 vycryl followed by monocryl in the skin and dermabond. A steril dressing will be placed and the patient taken to the recovery room under the care of anesthesia. GEOFF ROLLINS MD February 02, 2017 14:12
[2017-02-02] MEDS ORDERED: ONDANSETRON 4mg/2ml INJECTION IV PRN (14:30)
[2017-02-02] MEDS ORDERED: HYDROMORPHONE 2mg/ml INJECTION IV PRN (14:30)
[2017-02-02] MEDS ORDERED: NOZIN NASAL SWAB NS ONE (15:00)
--- NOTE | 2017-02-02 15:24 | ANESPO ---
Post-Op Note Date 02/02/17 Time: 15:23 Status Pt Participated in Evaluation: Pt participated in person Vital Signs Date Time Temp Pulse Resp B/P Pulse Ox O2 Delivery O2 Flow Rate FiO2 02/02/17 15:05 97.3 82 13 198/86 96 Nasal Cannula 2.00 Respiratory Function: Airway patent, Regular respirations Cardiovascular Function: Regular pulse Mental Status: Alert/oriented (return to preop condition) Pain Level Intensity: 0 Hydration: IV infusing Complications during Recovery None apparent Follow-Up Instructions Instructions Per Surgeon CONSTANTIN MCCANN CRNA February 02, 2017 15:24
[2017-02-02] MEDS: TRANEXAMIC ACID 1,000 MG in NORMAL SALINE 100 ML TOP SCH ×2 (15:25→15:26)
[2017-02-02] MEDS ORDERED: FENTANYL 100mcg/2ml INJECTION IV PRN (15:30)
--- NOTE | 2017-02-02 16:00 | NUR ---
ARRIVAL PT TO ROOM 129 PER BED WITH PACU STAFF. VS STABLE AT THIS TIME. DRESSING C/D/I. PT DOES NOT DISPLAY SIGNS OF PAIN. PT ON 2 L PER NC. FAMILY AT BEDSIDE. WILL CONTINUE TO MONITOR.
[2017-02-02] MEDS: CLINDAMYCIN 900mg IVPB 50 ML IV SCH (18:27)
--- NOTE | 2017-02-02 18:44 | NUR ---
STATUS HX OF ALZHEIMERS. AT BEDSIDE. DOES NOT ANSWER MANY QUESTIONS APPROPRIATELY. HR ELEVATED AT 104. PT RESTING IN BED. PRN MORPHINE GIVEN DUE TO PT HOLDING HIP AND BECOMING RESTLESS. PT TOLERATING REG DIET,BUT HAS POOR APPETITE. ADEQUATE OUTPUT. PT ON 0.5L O2 PER NC. PT RESTING IN BED WITH ALARM. CALL LIGHT WITHIN REACH. WILL CONTINUE TO MONITOR.
[2017-02-02] MEDS: MIRTAZAPINE 15 MG TABLET PO SCH (20:51)
[2017-02-02] MEDS: ENOXAPARIN 40 MG/0.4 ML INJECTION SQ SCH (20:53)
[2017-02-02] MEDS: NOZIN NASAL SWAB NS SCH (20:53)
[2017-02-03] VITALS (14 sets, daily range): BP systolic 78–151; BP diastolic 43–92; PULSE 68–107; RESP 8–20; TEMP 96.9–98.5; O2SAT 91–96
[2017-02-03] MEDS: HYDROMORPHONE 2mg/ml INJECTION IV PRN ×2 (00:51→09:44)
[2017-02-03] MEDS: CLINDAMYCIN 900mg IVPB 50 ML IV SCH ×2 (00:56→05:34)
--- NOTE | 2017-02-03 03:33 | NUR ---
PT IS ALERT BUT NOT ORIENTED. PT IS UNABLE TO ANSWER QUESTIONS APPROPRIATELY, UNABLE TO RATE PAIN. FREQUENTLY SPEAKS WORD SALAD PT HAS AN IV IN THE LT HAND, SECURED WITH AN ARM BOARD, WRAPPED IN COBAN, AND COVERED WITH AN ARM COVER. IV RUNNING .45% NS 20KCL @ 100 MLS/ HR. HAS BEEN AT BEDSIDE ALL SHIFT. PT HAD BEEN RESTLESS AND INCREASINGLY AGITATED, PRN DILAUDID GIVEN AND PT HAS BEEN SLEEPING COMFORTABLY SINCE. ROOM AIR. Addendum: 02/03/17 at 0505 by JOSEFINA REID RN CORRECTION PT HAS NS RUNNING AT 100 MLS/HR.
[2017-02-03] MEDS: NORMAL SALINE 1,000 ML IV SCH ×3 (03:37→22:49)
[2017-02-03 05:32] LABS: BASOPHILS % (AUTO) 0.1 % (0-2); EOSINOPHILS % (AUTO) 0.2 % (0-4); HCT - HEMATOCRIT 34.8 % (36-46); HGB - HEMOGLOBIN 11.5 GM/DL (12-16); IMMATURE GRANULOCYTE # (AUTO) 0.01 T/MM3 (0.00-0.03); IMMATURE GRANULOCYTE % (AUTO) 0.1 % (0.0-0.5); LYMPHOCYTES % (AUTO) 23.5 % (23-45); MEAN CORPUSCULAR HGB 31.6 UUG (26-34); MEAN CORPUSCULAR VOLUME 95.6 UM3 (80-100); MEAN PLATELET VOLUME 10.1 UM3 (9.4-12.4); MONOCYTES # (AUTO) 1.1 T/MM3 (0-0.8); MONOCYTES % (AUTO) 12.6 % (0-9.0); NEUTROPHILS #(AUTO)-ABSOLUTE 5.5 T/MM3 (1.8-7.7); NEUTROPHILS % (AUTO) 63.5 % (33-66); RED BLOOD COUNT 3.64 M/MM3 (4.00-5.20); WBC - WHITE BLOOD COUNT 8.6 T/MM3 (4.5-11.0)
[2017-02-03] MEDS: NOZIN NASAL SWAB NS SCH ×3 (05:33→21:20)
[2017-02-03 05:41] LABS: ANION GAP 10 MEQ/L (5-15); BUN/CREATININE RATIO 18 RATIO (6-26); CALCIUM 8.2 MG/DL (8.4-10.2); CHLORIDE 106 MEQ/L (98-107); CO2 - CARBON DIOXIDE 23 MEQ/L (22-30); CREATININE 0.9 MG/DL (0.7-1.2); GLOMERULAR FILTRATION RATE 60; GLUCOSE 104 MG/DL (65-110); SODIUM 139 MEQ/L (134-144)
[2017-02-03] MEDS: LEVOTHYROXINE 100 MCG TABLET PO SCH (05:42)
--- NOTE | 2017-02-03 08:04 | PDORTHOPN ---
Subjective Date DATE: 02/03/17 TIME: 08:01 Subjective Huong was seen this AM by Dr Rollins and myself. Pt is non-verbal and appears tense. Dressing is dry. She does not cooperate with additional exam. Objective Vital Signs Vital signs Vital Signs 02/03/17 02/03/17 02/03/17 00:41 04:00 07:53 Temp 96.9 97.2 97.4 Pulse 90 81 87 Resp 13 15 20 B/P 141/72 120/61 146/92 Pulse Ox 92 91 91 O2 Delivery Room Air Room Air Room Air Height (Feet): 5 Height (Inches): 4.00 Weight (Kilograms): 53.500 General General Appearance: Alert, Uncooperative Respiratory (Brief) Respiratory Brief: FOUND: non-labored Cardiovascular (Brief) Cardiac: FOUND: pedal pulses intact Surgical Site Incision: FOUND: Mepilex dressing intact, no drainage Psychiatric (Brief) Psychiatric Brief: FOUND: alert Laboratory Laboratory Laboratory Tests 02/01/17 12:47 02/02/17 04:21 02/03/17 04:38 Laboratory Tests 02/01/17 12:47 02/02/17 04:21 02/03/17 04:38 Assessment & Plan Problems: (1) Femur fracture, right Status: Acute Qualifiers: Encounter type: initial encounter Femur location: neck Fracture type: closed Qualified Codes: S72.001A - Fracture of unspecified part of neck of right femur, initial encounter for closed fracture Assessment & Plan: Right hip endoprosthesis by Dr. Rollins on 02/02/17 WBAT, PT / OT to work with her. Lovenox and SCDs for DVT coverage. Plan f/u with orthopedics in 2-3 weeks. Med mgmt per hospitalist service. Hospital Course Summary Disclaimer The visit summary below is not to be considered part of the above Progress Note. SKYE HICKMAN February 03, 2017 08:04
--- NOTE | 2017-02-03 08:53 | DI ---
Indication: ITS.REASON: Right hip joselo arthroplasty 02/02 PROCEDURE: PELVIS 1-2 VIEW DEDICATED PELV: Encounter: Initial Comparison: February 01, 2017 Findings: Postoperative changes of right femoral head replacement are seen. There is expected postoperative subcutaneous gas. No evidence of hardware failure or acute fracture. No retained radiopaque surgical instruments or sponges seen. Impression: New right femoral head prosthesis without evidence of immediate complication. .
[2017-02-03] MEDS: DICLOFENAC 1% TOPICAL GEL 100 G TUBE TOP SCH ×4 (09:00→21:00)
--- NOTE | 2017-02-03 09:09 | NUR ---
STEPHENIE CM IN TO VISIT WITH PT. SHE IS UNABLE TO PARTICIPATE IN DC PLANNING SECONDARY TO DEMENTIA. HER SPOUSE, LEONARD, IS PRESENT. HE CONFIRMS THAT PT RESIDES AT [facility]. HE PLANS FOR HER TO RETURN THERE UPON DC. STEPHENIE EXPLAINS HER ROLE IN DC PLANNING AND TRANSITION OF CARE. HE IS GIVEN CM CONTACT INFORMATION. NERI SCORE IS 10. Addendum: 02/03/17 at 0910 by OMAR LANDIN RN Amended: Links added.
--- NOTE | 2017-02-03 09:13 | NUR ---
CM VM IS LEFT FOR ISAEL AT [facility] TO LET HER KNOW SPOUSE'S PLAN FOR PT TO RETURN TO THEM UPON DC. PORTAL IS OPENED.
--- NOTE | 2017-02-03 09:44 | NUR ---
DILAUDID ADMINISTRATION THIS RN RECEIVED A CALL FROM THE CHARGE NURSE THAT THE PT WAS COMBATIVE AND PULLING AT HER IV LINE AT THIS TIME. PT APPEARED TO BE RESTLESS AND AGITATED UPON THIS RN'S ARRIVAL TO THE PT'S ROOM. THE PT WAS RATED A 10/10 ON THE FLACC SCALE AT THIS TIME. PT WAS REPORTED TO HAVE TOLERATED THE DILAUDID WELL ON THE PREVIOUS SHIFT. AT THIS TIME, THE PT WAS GIVEN 0.5MG DILAUDID IV FOR INCREASED PAIN.
--- NOTE | 2017-02-03 09:51 | PNPDOC ---
Subjective Date DATE: 02/03/17 TIME: 09:49 Subjective No events overnight. Patient unable to give any history secondary to dementia. at bedside relates that she is more confused than usual and somewhat agitated. Objective Vital Signs Vital signs Vital Signs Date Time Temp Pulse Resp B/P Pulse Ox O2 Delivery O2 Flow Rate FiO2 02/03/17 09:44 16 02/03/17 07:53 97.4 87 146/92 91 Room Air 02/02/17 18:27 1.00 Height (Feet): 5 Height (Inches): 4.00 Weight (Kilograms): 53.500 General Comments General - confused; NAD CV - RRR Lungs - CTAB Abdomen - benign Extremities - no E/C/C Neuro--nonfocal Laboratory Laboratory Laboratory Tests 02/01/17 12:47 02/02/17 04:21 02/03/17 04:38 Laboratory Tests 02/01/17 12:47 02/02/17 04:21 02/03/17 04:38 Assessment & Plan Assessment #1 hip fracture--had surgery yesterday. Awaiting rehabilitation placement. Continue physical therapy. #2 dementia--we will continue her outpatient medications. #3 chronic recurrent UTIs--restart Bactrim as OP. #4 CODE STATUS--DO NOT RESUSCITATE #5 hypothyroidism--we will continue her Synthroid. Code Status Do Not Resuscitate Hospital Course Summary Disclaimer The hospital course summary below is not to be considered part of the above Progress Note. DANIEL LIANG MD February 03, 2017 09:51
[2017-02-03] MEDS: DIVALPROEX SPRINKLE 125 MG CAPSULE PO SCH ×2 (10:14→21:20)
[2017-02-03] MEDS: PROPRANOLOL 10 MG TABLET PO SCH ×2 (10:15→21:17)
[2017-02-03] MEDS: QUETIAPINE 50 MG TABLET PO SCH (10:15)
[2017-02-03] MEDS: MEMANTINE 10 MG TABLET PO SCH ×2 (10:15→21:20)
[2017-02-03] MEDS: GABAPENTIN 100 MG CAPSULE PO SCH ×3 (10:22→21:00)
[2017-02-03] MEDS: SENNA + DOCUSATE TAB PO SCH ×2 (10:22→21:21)
[2017-02-03] MEDS: POTASSIUM CL. 10mEq CAP PO SCH (10:22)
[2017-02-03] MEDS: POLYETHYL.GLYCOL 3350 PACKET 17gm PO SCH ×2 (10:26→21:18)
--- NOTE | 2017-02-03 11:30 | NUR ---
PHYSICIAN NOTIFICATION INFORMED DR. LIANG OF PT'S STATUS CHANGE, PT HAD A DECREASED BLOOD PRESSURE OF 78/47 WITH A RECHECK OF 90/51. PT APPEARED TO BE RESTING WELL WITH SLOWED RESPIRATIONS OF 8 BUT WAS RESPONSIVE TO STIMULI. PT HAD RECEIVED A SCHEDULED DOSE OF NORCO THIS MORNING AND A PRN DOSE OF DILAUDID 0.5MG IV. THIS RN RECEIVED ORDERS TO GIVE NARCAN 0.4MG IV ONCE AND TO DISCONTINUE THE SCHEDULED NORCO BID AND TO ADD HALOPERIDOL 1MG IV Q4H PRN AGITATION.
[2017-02-03] MEDS ORDERED: NALOXONE 0.4mg/ml INJECTION IV ONE (11:45)
[2017-02-03] MEDS ORDERED: NALOXONE 0.4mg/ml INJECTION IM ONE (11:45)
--- NOTE | 2017-02-03 11:45 | NUR ---
NARCAN ADMINISTRATION PT WAS GIVEN NARCAN 0.4MG IV AT THIS TIME. PT RESPIRATIONS INCREASED FROM 8 TO 12 WITH THE PUBLIC WORKS INSPECTOR AND THE PT'S LEVEL OF RESPONSIVENESS RAPIDLY INCREASED. THE PT'S BLOOD PRESSURE AT 1144 WAS 151/57. PT BECAME IRRITABLE AND AGITATED SHORTLY AFTER. PT STARTED TO PULL AT HER SLEEVE COVERING HER IV SITE AND WAS INTERFERING WITH CARES. HALOPERIDOL 1MG WAS GIVEN IV AT 1150 DUE TO THE RESTLESSNESS AND AGITATION. THE PT TOLERATED THE MEDICATION WELL. AT THIS TIME, STAFF OR THE PT'S , LEONARD REMAIN IN THE ROOM WITH THE PT WHILE THE PT IS AWAKE. CONTINUING TO MONITOR PT STATUS. THIS RN CALLED DR. LIANG WITH AN UPDATED REPORT ON THE STATUS OF THE PT.
[2017-02-03] MEDS: HALOPERIDOL 5 MG/ML INJECTION IV PRN (11:50)
[2017-02-03] MEDS: QUETIAPINE 25 MG TABLET PO SCH ×2 (12:00→21:22)
--- NOTE | 2017-02-03 12:17 | NUR ---
CM PER VM FROM ISAEL, PT CAN RETURN TO [facility] FOR [facility].
--- NOTE | 2017-02-03 12:36 | NUR ---
PHYSICIAN NOTIFICATION GAVE UPDATE ON PT STATUS TO DR. LIANG AT THIS TIME AND RECEIVED CLARIFICATION ON ORDERS TO CONTINUE THE PRN NORCO Q4H PRN PAIN AND TO DISCONTINUE THE IV DILAUDID. NO FURTHER ORDERS RECEIVED. WILL CONTINUE TO MONITOR.
--- NOTE | 2017-02-03 15:01 | NUR ---
PT/OT note: Attempted to see pt 3x this date, but pt either agitated or sleeping peacefully and RN requests to hold at the moment. During last attempt, pt's requests for therapists to come back tomorrow and let pt rest today. Will cont to follow pt and perform evals tomorrow morning. Call [phone] with questions.
--- NOTE | 2017-02-03 18:39 | NUR ---
PROGRESS NOTE THE PT IS RESTING IN BED AT THIS TIME. PT'S AND DAUGHTER AT BEDSIDE. THE PT IS JUST RESTING AFTER SOME RESTLESSNESS WAS NOTED. THE PT CONTINUES TO TRY AND PULL OFF THE SLEEVE TO THE LEFT ARM WHILE AWAKE. THE PT HAS BEEN GIVEN A NORCO 7.5/325MG TABLET, CRUSHED IN PUDDING FOR INCREASED PAIN AT 1700. THE PT WAS GIVEN IV NARCAN EARLIER AROUND 1145 THIS SHIFT DUE TO DECREASED RESPIRATIONS AND A DECREASED BLOOD PRESSURE. THE PT VITAL SIGNS HAVE BEEN STABLE SINCE, ON RA. THE PT WAS UNABLE TO WORK WITH PHYSICAL THERAPY THIS SHIFT AND HAS NOT BEEN OUT OF BED SINCE SURGERY. THE PT'S PEPE CATHETER IS PATENT AND DRAINING WITH ADEQUATE URINE OUTPUT. THE PT HAS NOT HAD A BOWEL MOVEMENT THIS SHIFT. WILL CONTINUE TO MONITOR.
--- NOTE | 2017-02-03 19:30 | NUR ---
ALLERGY UPDATE THIS RN PREPARED TO ADMINISTER TYLENOL TO THE PT FOR PAIN. SPOUSE STATED THAT PT IS ALLERGIC TO CHOCOLATE AND TO NOT GIVE MEDICATION IN CHOCOLATE PUDDING. ALLERGY INFORMATION WAS UPDATED TO INCLUDE THIS.
[2017-02-03] MEDS: ACETAMINOPHEN 325 MG TABLET PO PRN ×2 (19:45→19:50)
[2017-02-03] MEDS: MIRTAZAPINE 15 MG TABLET PO SCH (21:18)
[2017-02-03] MEDS: ENOXAPARIN 40 MG/0.4 ML INJECTION SQ SCH (21:20)
--- NOTE | 2017-02-03 22:28 | NUR ---
UPDATE DIFFICULT TIME GETTING PATIENT TO TAKE HER EVENING MEDICATION, NEEDED TO GO IN SEVERAL TIMES WITH 2 DIFFERENT PEOPLE TO GET THEM TAKEN. ALSO PATIENT IS REFUSING THE ICE PACK TO BE PLACED, NEW ICE PACK MADE AND STATES THAT IT IRRITATES HER SO HE PLACES IT ON THE FLOOR. WILL CONTINUE TO ENCOURAGE TO HELP WITH SWELLING.
[2017-02-04] VITALS (9 sets, daily range): BP systolic 122–160; BP diastolic 56–92; PULSE 74–113; RESP 16–24; TEMP 97–99.3; O2SAT 94–99
[2017-02-04] MEDS: HALOPERIDOL 5 MG/ML INJECTION IV PRN ×2 (02:20→10:56)
[2017-02-04] MEDS: NOZIN NASAL SWAB NS SCH ×3 (04:00→21:44)
[2017-02-04] MEDS: LEVOTHYROXINE 100 MCG TABLET PO SCH (04:50)
--- NOTE | 2017-02-04 06:12 | NUR ---
SHIFT SUMMARY PT REMAINS AT BEDSIDE TO ASSIST WITH PT NEEDS AND NOTIFIES STAFF WHEN PT BECOMES AGITATED AND EXHIBITING SIGNS OF PAIN. PT TAKES HER MEDICATIONS CRUSHED IN APPLESAUCE WITH A LOT OF PROMPTING AND ENCOURAGEMENT. AT TIMES IT BECOMES DIFFICULT TO ADMINISTER MEDICATIONS. FLACC SCALE HAS BEEN UTILIZED ON THIS SHIFT PT HAS DIFFICULTY WITH MEMORY AND IDENTIFYING PAIN VIA THE NUMBER OR FACES SCALE. VITAL SIGNS HAVE REMAINED STABLE ON ROOM AIR. ADEQUATE URINE OUTPUT VIA PEPE. PT HAS REFUSED POSITIONING ON SEVERAL OCCASIONS THIS EVENING. WILL CONTINUE TO MONITOR.
[2017-02-04] MEDS: GABAPENTIN 100 MG CAPSULE PO SCH ×3 (08:20→21:44)
[2017-02-04] MEDS: DIVALPROEX SPRINKLE 125 MG CAPSULE PO SCH ×2 (08:21→21:43)
[2017-02-04] MEDS: QUETIAPINE 50 MG TABLET PO SCH (08:21)
[2017-02-04] MEDS: MEMANTINE 10 MG TABLET PO SCH ×2 (08:21→21:44)
[2017-02-04] MEDS: POTASSIUM CL. 10mEq CAP PO SCH (08:21)
[2017-02-04] MEDS: PROPRANOLOL 10 MG TABLET PO SCH ×2 (08:21→21:44)
[2017-02-04] MEDS: SENNA + DOCUSATE TAB PO SCH ×2 (08:21→21:44)
[2017-02-04] MEDS: ACETAMINOPHEN 325 MG TABLET PO PRN (08:22)
--- NOTE | 2017-02-04 08:36 | PNPDOC ---
Subjective Date DATE: 02/04/17 TIME: 08:35 Subjective No evidence overnight. Only required Haldol twice in the past 18 hours. Objective Vital Signs Vital signs Vital Signs Date Time Temp Pulse Resp B/P Pulse Ox O2 Delivery O2 Flow Rate FiO2 02/04/17 08:25 105 24 160/81 94 Room Air 02/04/17 05:29 99.3 02/04/17 00:56 1.00 Height (Feet): 5 Height (Inches): 4.00 Weight (Kilograms): 53.500 General Comments General - confused; NAD CV - RRR Lungs - CTAB Abdomen - benign Extremities - no E/C/C Neuro--nonfocal Laboratory Laboratory Laboratory Tests 02/03/17 04:38 Laboratory Tests 02/03/17 04:38 Assessment & Plan Assessment #1 hip fracture--had surgery 02/03. Awaiting rehabilitation placement. Continue physical therapy. #2 dementia--we will continue her outpatient medications. #3 chronic recurrent UTIs--restart Bactrim as OP. #4 CODE STATUS--DO NOT RESUSCITATE #5 hypothyroidism--we will continue her Synthroid. Code Status Do Not Resuscitate Hospital Course Summary Disclaimer The hospital course summary below is not to be considered part of the above Progress Note. DANIEL LIANG MD February 04, 2017 08:36
--- NOTE | 2017-02-04 08:43 | PDORTHOPN ---
Subjective Date DATE: 02/04/17 TIME: 08:40 Subjective Huong had a tough night according to her who has been with her all night. She has been agitated and pulling at her lines. She is lying in an internally rotated position with no pillow between her legs. I did replace the pillow. is asking for a 1: 1 to allow him to go home and get some rest. Objective Vital Signs Vital signs Vital Signs 02/03/17 02/04/17 02/04/17 02/04/17 21:39 00:56 05:29 08:25 Temp 97.3 99.3 Pulse 95 74 98 105 Resp 14 18 18 24 B/P 122/56 154/83 160/81 Pulse Ox 96 95 94 O2 Delivery Nasal Cannula Room Air Room Air O2 Flow Rate 1.00 Height (Feet): 5 Height (Inches): 4.00 Weight (Kilograms): 53.500 General General Appearance: Alert, Uncooperative Respiratory (Brief) Respiratory Brief: FOUND: non-labored Cardiovascular (Brief) Cardiac: FOUND: calf easily compressible, calf soft, nontender, pedal pulses intact Abdomen (Brief) Abdominal Brief: FOUND: non-tender Musculoskeletal (Brief) Hip: FOUND abnormal rotation, FOUND painful PROM Comments right leg internally rotated. Surgical Site Incision: FOUND: Mepilex dressing intact, no drainage Integumentary (Brief) Integumentary Brief: FOUND dry, FOUND pink, FOUND warm Neurologic (Brief) Neurological Brief: FOUND: extremities w/o deficits, neuro intact Psychiatric (Brief) Psychiatric Brief: FOUND: alert, no acute distress Laboratory Laboratory Laboratory Tests 02/03/17 04:38 Laboratory Tests 02/03/17 04:38 Assessment & Plan Problems: (1) Femur fracture, right Status: Acute Qualifiers: Encounter type: initial encounter Femur location: neck Fracture type: closed Qualified Codes: S72.001A - Fracture of unspecified part of neck of right femur, initial encounter for closed fracture Assessment & Plan: Right hip endoprosthesis by Dr. Rollins on 02/02/17 WBAT, PT / OT to work with her. Lovenox and SCDs for DVT coverage. Plan f/u with orthopedics in 2-3 weeks. Med mgmt per hospitalist service. X-ray is ordered for review of prosthesis Hospital Course Summary Disclaimer The visit summary below is not to be considered part of the above Progress Note. ALANA HELLER February 04, 2017 08:43
[2017-02-04] MEDS: NORMAL SALINE 1,000 ML IV SCH ×2 (09:10→19:19)
--- NOTE | 2017-02-04 09:55 | DI ---
Indication: ITS.REASON: RIGHT HIP FINA ARTHROPLASTY 02/02 PROCEDURE: PELVIS W/1 VIEW RT HIP: Encounter: Initial Comparison: Pelvis radiographs dated February 03, 2017 Findings: Right femoral head replacement appears stable. No acute fracture or dislocation seen. Postoperative subcutaneous gas noted on the right. Impression: Stable appearance of the right femoral head prosthesis. .
[2017-02-04] MEDS: DICLOFENAC 1% TOPICAL GEL 100 G TUBE TOP SCH ×4 (10:43→21:00)
[2017-02-04] MEDS: POLYETHYL.GLYCOL 3350 PACKET 17gm PO SCH ×2 (10:47→21:45)
[2017-02-04] MEDS: QUETIAPINE 25 MG TABLET PO SCH ×2 (13:24→21:43)
--- NOTE | 2017-02-04 18:11 | NUR ---
PROGRESS NOTE PT VITAL SIGNS HAVE BEEN STABLE THIS SHIFT, ON RA. THE PT IS RESTING IN BED, PROPPED ON PILLOWS WITH FAMILY AT BEDSIDE. THE PT HAS BEEN TURNED Q2H THIS SHIFT AND HEELS HAVE BEEN ELEVATED OFF THE BED. THE PT HAS HAD ADEQUATE URINE OUTPUT WITH A PATENT PEPE CATHETER. NO BOWEL MOVEMENT THIS SHIFT. PT HAS BEEN A 1:1 THROUGHOUT THIS SHIFT WHILE THE IS NOT AT BEDSIDE. THE HAS BEEN GIVEN ONE DOSE OF HALDOL IV THIS SHIFT FOR RESTLESSNESS AND AGITATION AND 2 PRN DOSES OF NORCO FOR INCREASED PAIN PER FLACC SCALE. THE PT HAS NOT BEEN COMBATIVE THIS SHIFT BUT CONTINUES TO REQUIRE SUPERVISION FOR PULLING AT LINES. NO OTHER CONCERNS NOTED, WILL CONTINUE TO MONITOR.
[2017-02-04] MEDS: MIRTAZAPINE 15 MG TABLET PO SCH (21:44)
[2017-02-04] MEDS: ENOXAPARIN 40 MG/0.4 ML INJECTION SQ SCH (21:45)
[2017-02-05] VITALS: BP 146/94; PULSE 85; RESP 18; TEMP 97.1; O2SAT 97
--- NOTE | 2017-02-05 02:43 | NUR ---
SHIFT REPORT VITAL SIGNS STABLE, ON RA. THE PT IS RESTING IN BED. THE PT HAS BEEN TURNED Q2H AND HEELS ELEVATED OFF THE BED. THE PT HAS HAD ADEQUATE URINE OUTPUT WITH PEPE CATHETER. NO BOWEL MOVEMENT. PT HAS BEEN 1:1 THROUGHOUT SHIFT WHILE THE IS NOT AT BEDSIDE. THE PT HAS BEEN CALM AND COOPERATIVE THIS SHIFT BUT CONTINUES TO PULL AT LINES. WILL CONTINUE TO MONITOR. AT BEDSIDE.
[2017-02-05] MEDS: ACETAMINOPHEN 325 MG TABLET PO PRN (04:18)
[2017-02-05] MEDS: NOZIN NASAL SWAB NS SCH (04:18)
[2017-02-05 04:24] VITALS: TEMP 99.1
[2017-02-05 04:54] VITALS: BP 157/72; PULSE 98; RESP 14; O2SAT 91
[2017-02-05 05:17] LABS: HCT - HEMATOCRIT 31.4 % (36-46); HGB - HEMOGLOBIN 10.4 GM/DL (12-16); MEAN CORPUSCULAR HGB 31.7 UUG (26-34); MEAN CORPUSCULAR HGB CONC(MCHC 33.1 GM/DL (31-37); MEAN CORPUSCULAR VOLUME 95.7 UM3 (80-100); MEAN PLATELET VOLUME 9.8 UM3 (9.4-12.4); RED BLOOD COUNT 3.28 M/MM3 (4.00-5.20); WBC - WHITE BLOOD COUNT 6.8 T/MM3 (4.5-11.0)
[2017-02-05 05:26] LABS: ANION GAP 11 MEQ/L (5-15); BUN/CREATININE RATIO 12 RATIO (6-26); CALCIUM 8.3 MG/DL (8.4-10.2); CHLORIDE 107 MEQ/L (98-107); CO2 - CARBON DIOXIDE 25 MEQ/L (22-30); CREATININE 0.6 MG/DL (0.7-1.2); GLOMERULAR FILTRATION RATE 96; GLUCOSE 101 MG/DL (65-110); MAGNESIUM 1.6 MG/DL (1.6-2.3); POTASSIUM 3.8 MEQ/L (3.6-5); SODIUM 143 MEQ/L (134-144)
[2017-02-05] MEDS: NORMAL SALINE 1,000 ML IV SCH (05:39)
[2017-02-05] MEDS: LEVOTHYROXINE 100 MCG TABLET PO SCH (05:41)
[2017-02-05 06:17] LABS: BAND NEUTROPHILS # 0.1 T/MM3; EOSINOPHILS # (MANUAL) 0.3 T/MM3 (0-0.5); LYMPHOCYTES # (MANUAL) 1.7 T/MM3 (1-4.8); MONOCYTES # (MANUAL) 0.1 T/MM3 (0-0.8); NEUTROPHILS #(MANUAL)-ABSOLUTE 4.6 T/MM3 (1.8-7.7); TOTAL CELLS COUNTED 100 %
[2017-02-05 08:11] VITALS: BP 154/79; PULSE 83; RESP 20; TEMP 96.8; O2SAT 94
[2017-02-05] MEDS: POLYETHYL.GLYCOL 3350 PACKET 17gm PO SCH (08:46)
[2017-02-05] MEDS: DIVALPROEX SPRINKLE 125 MG CAPSULE PO SCH (08:47)
[2017-02-05] MEDS: QUETIAPINE 50 MG TABLET PO SCH (08:47)
[2017-02-05] MEDS: PROPRANOLOL 10 MG TABLET PO SCH (08:47)
[2017-02-05] MEDS: DICLOFENAC 1% TOPICAL GEL 100 G TUBE TOP SCH (08:47)
[2017-02-05] MEDS: POTASSIUM CL. 10mEq CAP PO SCH (08:47)
[2017-02-05] MEDS: GABAPENTIN 100 MG CAPSULE PO SCH (08:47)
[2017-02-05] MEDS: SENNA + DOCUSATE TAB PO SCH (08:47)
[2017-02-05] MEDS: MEMANTINE 10 MG TABLET PO SCH (08:47)
--- NOTE | 2017-02-05 09:52 | NUR ---
STEPHENIE CM IN TO VISIT WITH PT. SHE IS UNABLE TO PARTICIPATE IN DC PLANNING SECONDARY TO DEMENTIA. HER SPOUSE IS PRESENT. HE IS MADE AWARE THAT DC TO PM IS PLANNED FOR TODAY. STEPHENIE SPOKE WITH NEETA AT PM TO MAKE THEM AWARE OF PLANNED DC. Addendum: 02/05/17 at 0953 by OMAR LANDIN RN Amended: Links added.
--- NOTE | 2017-02-05 10:32 | DSPDOC ---
General Date Date DATE: 02/05/17 TIME: 10:30 Attending Physician Daniel Evans MD Admitting Physician Daniel Evans MD Consulting Physician Milo Bañuelos MD Admitting Diagnosis HIP FX Discharge Diagnosis HIP FX Laboratory Laboratory Tests Test 02/05/17 04:31 White Blood Count 6.8T/MM3 (4.5-11.0) Red Blood Count 3.28M/MM3 (4.00-5.20) Hemoglobin 10.4GM/DL (12-16) Hematocrit 31.4% (36-46) Mean Corpuscular Volume 95.7UM3 (80-100) Mean Corpuscular Hemoglobin 31.7UUG (26-34) Mean Corpuscular Hemoglobin Concent 33.1GM/DL (31-37) RDW Standard Deviation 41.7FL (36.9-50.2) Platelet Count 158T/MM3 (130-400) Mean Platelet Volume 9.8UM3 (9.4-12.4) Neutrophils % (Manual) 67.0% (33-66) Band Neutrophils % 2.0% (0-6) Lymphocytes % (Manual) 25.0% (23-45) Monocytes % (Manual) 2.0% (0-9.0) Eosinophils % (Manual) 4.0% (0-4) Absolute Neutrophils (Manual) 4.6T/MM3 (1.8-7.7) Band Neutrophils # 0.1T/MM3 Lymphocytes # (Manual) 1.7T/MM3 (1-4.8) Monocytes # (Manual) 0.1T/MM3 (0-0.8) Eosinophils # (Manual) 0.3T/MM3 (0-0.5) Red Cell Morphology Comment Normal Turbidity < 20 (0-20) Sodium Level 143MEQ/L (134-144) Potassium Level 3.8MEQ/L (3.6-5) Chloride Level 107MEQ/L (98-107) Carbon Dioxide Level 25MEQ/L (22-30) Anion Gap 11MEQ/L (5-15) Blood Urea Nitrogen 7.0MG/DL (7-17) Creatinine 0.6MG/DL (0.7-1.2) Glomerular Filtration Rate Calc 96 BUN/Creatinine Ratio 12RATIO (6-26) Glucose Level 101MG/DL (65-110) Calculated Osmolality 273MOSM/KG (261-280) Calcium Level 8.3MG/DL (8.4-10.2) Magnesium Level 1.6MG/DL (1.6-2.3) Icterus Index < 2 (0-7) Chemistry Specimen Hemolysis < 15 (0-25) History of Present Illness This is an 82-year-old female who had a fall at long-term this morning. The patient is unable to give any history secondary to her dementia. Per review of records she fell and was then able to move the right leg. Patient was very tender to palpation and sent in from the long-term for further evaluation. Upon arrival to the emergency department and review of x-rays she was found to have a hip fracture. Per review of long-term records, she was taking her medications as prescribed. Hospital Course This is an 82-year-old female who was admitted to the hospital for hip fracture. She was seen by orthopedic surgery and had the fracture repaired. She was continued on her outpatient medications. She responded well to therapy. Her narcotics had to be minimized secondary to oversedation. At time of discharge she is back to her baseline mental status per her . Her Dewey catheter was discontinued and if she is unable to void to be reinserted prior to discharge and bladder training can be done at the rehabilitation facility. Problems: Code Status Do Not Resuscitate Home Meds Reported Medications Hydrocodone/Acetaminophen (Hydrocodon-Acetaminoph 7.5-325) 7.5-325 Tablet, 1 TAB PO Q4HR Y for PAIN, TAB 02/01/17 Levothyroxine Sodium (Levothyroxine Sodium) 100 Mcg Tablet, 1 TAB PO ACB, TAB Once daily before breakfast 02/01/17 Diclofenac Sodium (Voltaren) 100 Gm Gel..gram., 1 APPLIC TOP QID, TUB 02/01/17 Quetiapine Fumarate (Seroquel) 25 Mg Tablet, 37.5 MG PO HS AND NOON, TAB Take 1 tablet, by mouth, once a day at bedtime. 02/01/17 Quetiapine Fumarate (Seroquel) 50 Mg Tablet, 50 MG PO DAILY, TAB 02/01/17 Sulfamethoxazole/Trimethoprim (Bactrim Ds Tablet) 1 Each Tablet, 1 TAB PO BID for 10 Days 05/20/16 Divalproex Sodium (Depakote Sprinkle) 125 Mg Capsule, 250 MG PO BID 05/20/16 Potassium Chloride (Potassium Chloride) 10 Meq Capsule.er, 10 MEQ PO DAILY 05/20/16 Cranberry Extract (Cranberry) 405 Mg Capsule, 405 MG PO BID 02/19/16 Mirtazapine (Mirtazapine) 15 Mg Tablet, 15 MG PO HS 02/19/16 Sennosides/Docusate Sodium (Senna Plus Tablet) 1 Tab Tablet, 1 TAB PO BID 10/08/15 Polyethylene Glycol 3350 (Miralax) 17 Gm Powd.pack, 17 G PO BID 10/08/15 Gabapentin (Neurontin) 100 Mg Capsule, 100 MG PO TID 09/25/15 Propranolol HCl (Propranolol HCl) 10 Mg Tablet, 10 MG PO BID 09/25/15 Memantine HCl (Namenda) 10 Mg Tablet, 10 MG PO BID 09/25/15 Discontinued Reported Medications Lorazepam (Lorazepam) 2 Mg/1 Ml Syringe, 1 MG TOP Q4H Y for AGITATION 02/01/17 Hydrocodone/Acetaminophen (Hydrocodon-Acetaminoph 7.5-325) 7.5-325 Tablet, 1 TAB PO BID for PAIN, TAB 02/01/17 Lorazepam (Lorazepam) 2 Mg/1 Ml Syringe, 1 MG TOP Q4H Y for AGITATION 05/20/16 Menthol (Biofreeze) 118 Ml Gel..ml., 1 APPLIC TOP BID 05/20/16 Lidocaine HCl (Aspercreme) 76.5 Gm Cream..g., 1 APPLIC TOP DAILY 05/20/16 Face to Face Encounter I met with patient on the day of dismissal and discussed follow up appointments , medications, and safety plan. Discharge Disposition [facility] DANIEL EVANS MD February 05, 2017 10:32
[2017-02-05] MEDS ORDERED: HYDR-347 PO (10:51)
--- NOTE | 2017-02-05 11:03 | PDOCECFAO ---
Admission Orders Admission Orders Admit to: [facility]iary Allergies: Coded Allergies: Chocolate (Verified Allergy, Unknown, 02/03/17) Penicillins (Verified Allergy, Unknown, 02/01/17) Admitting Diagnosis Hip Fx Admitting Physician Daniel Evans MD Code Status Do Not Resuscitate Anticipated LOS: 30 days or less Rehab Potential: Fair Rehab Prognosis: Fair Diet: Regular Wound/Incision Care: N/A May use Facility Protocol /SO: Yes May Have Flu Vaccine: Yes Evaluations/Treat: PT, OT [facility]iary Certification I certify that SNF services are required to be given on an Inpatient basis because of the patients need for detention care on a continuing basis for the condition(s) for which he/she received inpatient hospital services prior to his/her transfer to the SNF. SNF inpatient care is necessary for the following reasons Postop Assessment Care Cardiac or Respiratory Arrest In Event of Arrest: Do Not Start CPR Resident is Aware of Diagnosis: No (SPOUSE AWARE) Additional Orders: WEIGHT BEARING AT TOLERATED. DANIEL EVANS MD February 05, 2017 11:03
--- NOTE | 2017-02-05 11:20 | NUR ---
CM DC TIME OUT COMPLETED WITH MORAIMA DILLON.
--- NOTE | 2017-02-05 12:30 | NUR ---
PEPE INSERTION PEPE INSERTED UNDER STERILE TECHNIQUE BY THIS RN. THIS RN RECEIVED VERBAL ORDER FROM DR. MURRAY THAT IF PATIENT HAD NOT VOIDED BY THE TIME SHE WAS TO BE PICKED UP BY PRES. [facility]AG THEN A PEPE COULD BE REINSERTED. PATIENT UNABLE TO VOID ON BSC AND WAS NOT INCONTINENT. 16 PASHTO PEPE INSERTED. 10 CC IN BALLOON. PATIENT DOES NOT C/O PAIN DURING INSERTION. IMMEDIATE RETURN OF CLEAR YELLOW URINE. WILL CONTINUE TO MONITOR.
--- NOTE | 2017-02-05 12:40 | NUR ---
DISMISSAL PATIENT DISMISSED TO [facility] VIA WHEELCHAIR AND [facility] STAFF. PACKET AND PRESCRIPTIONS SENT WITH STAFF. PERSONAL BELONGINGS SENT WITH PATIENT. IV CATHETER REMOVED BY THIS RN. IV CATHETER TIP INTACT. PEPE REMAINS IN PLACE AT TIME OF TRANSFER. REPORT CALLED TO CHRISTIANO MCCONNELL AT [facility] AFTER DISMISSAL.
== END 2017-02-05 12:40 | DRG 470 ==
LOC: ED 09:30 → EDHOLD 12:35 → SRG 13:31
PROVIDERS: ADMIT Internal Medicine; ATTEND Internal Medicine
PROC: 0SRC0J9 Replacement of Right Knee Joint with Synthetic Substitute, Cemented, Open Approach (ICD-10-PCS; principal; 2017-02-02 12:57)
DX: S72.011A Unspecified intracapsular fracture of right femur, initial encounter for closed fracture (principal); N39.0 Urinary tract infection, site not specified; G30.9 Alzheimer's disease, unspecified; F02.80 Dementia in other diseases classified elsewhere, unspecified severity, without behavioral disturbance, psychotic disturbance, mood disturbance, and anxiety; E03.9 Hypothyroidism, unspecified; W18.30XA Fall on same level, unspecified, initial encounter; Y93.89 Activity, other specified; Y92.128 Other place in nursing home as the place of occurrence of the external cause; Y99.8 Other external cause status; Z66 Do not resuscitate
CPT/HCPCS: 36415; 51702; 80048; 80053; 81003; 83735; 84443; 85007; 85025; 85027; 85610; 86850; 86900; 86901; 93005

== ENCOUNTER 2017-03-22 06:49 | Observation (INO) ==
[2017-03-22] MEDS ORDERED: SALINE FLUSH 10ml SYRINGE IVF PRN (06:56)
[2017-03-22] MEDS ORDERED: ONDANSETRON 4 MG/2 ML INJECTION IVP ONE (06:56)
--- NOTE | 2017-03-22 07:04 | Emergency Department Report ---
Fall HPI - General Chief Complaint: Fall Stated Complaint: fall right hip pain Time Seen by Provider: 03/22/17 06:55 Source: EMS, RN notes reviewed Mode of arrival: EMS Limitations: altered mental status (Dementia) - History of Present Illness HPI Narrative: 82yo woman presented to the ER this AM by EMS for a fall and right hip pain. Pt was found down this AM at her senior living. Pt was unable to give hx surrounding the fall due to her dementia. Pt c/o persistent right hip pain, especially with movement; pt has had hip replacement on this side previously. MD complaint: fall Onset (ago): unknown Fall from: other (unknown) Fall witnessed: no Place fall occurred: home Loss of consciousness: unsure Location of injury: pelvis Location of injury - extremities: Right: thigh Severity: severe Severity scale (1-10): 8 Quality: sharp, stabbing - Related Data Home Medications Medication Instructions Recorded Confirmed Gabapentin [Neurontin] 100 mg PO TID #0 09/25/15 Memantine [Namenda] 10 mg PO BID #0 09/25/15 Propranolol HCl 10 mg PO BID #0 09/25/15 Polyethylene Glycol 3350 [Miralax] 17 g PO BID #0 10/08/15 Sennosides/Docusate Sodium [Sm 1 tab PO BID #0 10/08/15 Senna-S Tablet] Cranberry Fruit Extract [Cranberry] 405 mg PO BID #0 02/19/16 Mirtazapine 15 mg PO HS #0 02/19/16 Divalproex Sprinkle [Depakote 250 mg PO BID #0 05/20/16 Sprinkle] Potassium Chloride 10 meq PO DAILY #0 05/20/16 Sulfamethoxazole/Trimethoprim 1 tab PO BID 10 Days 05/20/16 [Bactrim Ds Tablet] Diclofenac Sodium [Voltaren] 1 applic TOP QID #0 tub 02/01/17 Hydrocodone/Acetaminophen 1 tab PO Q4HR PRN #0 tab 02/01/17 [Hydrocodon-Acetaminoph 7.5-325] Levothyroxine Sodium 1 tab PO ACB #0 tab 02/01/17 Quetiapine Fumarate [Seroquel] 37.5 mg PO HS AND NOON #0 tab 02/01/17 Quetiapine Fumarate [Seroquel] 50 mg PO DAILY #0 tab 02/01/17 Previous Rx's Medication Instructions Recorded Hydrocodone/Acetaminophen [[place] 1 tab PO Q4H #30 tab 02/05/17 7.5-325 Tablet] Allergies Allergy/AdvReac Type Severity Reaction Status Date / Time Penicillins Allergy Unknown Verified 02/01/17 13:48 Chocolate Allergy Unknown Uncoded 02/03/17 21:47 Review of Systems Limitations: ROS unobtainable due to patient's medical condition Musculoskeletal: Reports: other (Pt winces with any movement. Localizes to right hip.) PFSH Patient Stated Medical History Alzheimer's Disease Yes Dementia Yes Hypertension Yes Hx Urinary Tract Infection Yes Other Behavioral Health Yes: Hallucinations, Agitation Alzheimer's dementia with behavioral disturbance Hallucinations Restlessness/agitation CAD UTI Hypothyroid Anxiety HTN Constipation PNA Surgical History: Right hip replacement Physical Exam - Limitations Limitations: altered mental status - General General appearance: alert, in no apparent distress - Normal Exams: Head:: Normocephalic without trauma Eyes:: Pupils are PERRLA w/ EOMI, No scleral icterus, irritation ENMT:: No facial trauma, nasal exudates, pharyngeal erythema Neck:: Full range of motion, without adenopathy, JVD Course - Consultations Consultation #1: Dr. Rollins: Admit to hospitalist and consult Ortho. Time: 07:31 Consultation #2: Dr. Schwartz: Will admit for obs and consult Ortho. Time: 07:45 Vital Signs Temperature 98.1 F 03/22/17 06:50 Pulse Rate 94 03/22/17 06:50 Respiratory Rate 16 03/22/17 06:50 Blood Pressure 199/86 H 03/22/17 06:50 Pulse Oximetry 98 03/22/17 06:50 Temperature 98.1 F 03/22/17 06:50 Pulse Rate 94 03/22/17 06:50 Respiratory Rate 16 03/22/17 06:50 Blood Pressure 199/86 H 03/22/17 06:50 Pulse Oximetry 98 03/22/17 06:50 Fall - Differential Diagnosis Likely: syncope (hip fracture; pelvic fracture; UTI) - Medical Records Attestation: I reviewed the patient's medical records. - Lab Data Attestation: I reviewed the patient's lab results. Result diagrams: 03/22/17 07:07 03/22/17 07:07 Lab Results 03/22/17 03/22/17 03/22/17 Range/Units 07:07 07:07 07:07 WBC 4.5 (4.5-11.0) T/MM3 RBC 3.83 L (4.00-5.20) M/MM3 Hgb 12.0 (12-16) GM/DL Hct 38.0 (36-46) % MCV 99.2 (80-100) UM3 MCH 31.3 (26-34) UUG MCHC 31.6 (31-37) GM/DL RDW Std Deviation 45.9 (36.9-50.2) FL Plt Count 233 (130-400) T/MM3 MPV 9.1 L (9.4-12.4) UM3 Turbidity < 20 (0-20) Sodium 148 H (134-144) MEQ/L Potassium 4.1 (3.6-5) MEQ/L Chloride 108 H (98-107) MEQ/L Carbon Dioxide 30 (22-30) MEQ/L Anion Gap 10 (5-15) MEQ/L BUN 28.0 H (7-17) MG/DL Creatinine 0.7 (0.7-1.2) MG/DL GFR Calculation 80 BUN/Creatinine Ratio 40 H (6-26) RATIO Glucose 89 (65-110) MG/DL Calculated Osmolality 289 H (261-280) MOSM/KG Calcium 9.2 (8.4-10.2) MG/DL Icterus Index < 2 (0-7) Specimen Hemolysis 37 H (0-25) Blood Type O Positive Antibody Screen Negative - Radiology Data Attestation: I reviewed the patient's radiology results. Rt Hip: 1. Acute displaced avulsion fracture of the intertrochanter. 2. The right total hip prosthesis is stable in position. 3. Fecal impaction. Pelvis: 1. Acute displaced avulsion fracture of the greater trochanter 2. Stable appearance of the right total hip prosthesis in place. 3. Fecal impaction. - EKG Data EKG #1 EKG attestation: Yes: I reviewed and interpreted this EKG. Rhythm: NSR, arrhythmia (Sinus) [place]/QRS: normal Interpretation: normal EKG Disposition Clinical Impression: Fecal impaction Hip fracture, right Qualifiers: Encounter type: initial encounter Fracture type: closed Qualified Code(s): S72.001A - Fracture of unspecified part of neck of right femur, initial encounter for closed fracture Disposition: 02 To [facility] [place], [place] Prescriptions: No Action Gabapentin [Neurontin] 100 mg PO TID #0 Sennosides/Docusate Sodium [Sm Senna-S Tablet] 1 tab PO BID #0 Mirtazapine 15 mg PO HS #0 Cranberry Fruit Extract [Cranberry] 405 mg PO BID #0 Divalproex Sprinkle [Depakote Sprinkle] 250 mg PO BID #0 Quetiapine Fumarate [Seroquel] 37.5 mg PO HS AND NOON #0 tab Quetiapine Fumarate [Seroquel] 50 mg PO DAILY #0 tab Diclofenac Sodium [Voltaren] 1 applic TOP QID #0 tub Levothyroxine Sodium 1 tab PO ACB #0 tab Memantine [Namenda] 10 mg PO BID #0 Propranolol HCl 10 mg PO BID #0 Polyethylene Glycol 3350 [Miralax] 17 g PO BID #0 Potassium Chloride 10 meq PO DAILY #0 Sulfamethoxazole/Trimethoprim [Bactrim Ds Tablet] 1 tab PO BID 10 Days Hydrocodone/Acetaminophen [Hydrocodon-Acetaminoph 7.5-325] 1 tab PO Q4HR PRN #0 tab PRN Reason: PAIN Hydrocodone/Acetaminophen [[place] 7.5-325 Tablet] 1 tab PO Q4H #30 tab Referrals: iMli Engle MD [Family Provider] - Time of Disposition: 07:45 - Seen By: physician
--- NOTE | 2017-03-22 07:57 | XRay Report ---
EXAM: XR pelvis 1-2V LOCATION OF DICTATION: [place] HISTORY: Fall COMPARISON: Comparison is made with the prior examination dated 02/04/2017 FINDINGS: The osseous structures are moderately demineralized. There is stable appearance of the right total hip prosthesis . There is been interval development of an avulsion fracture of the greater trochanter which is superiorly displaced 10 mm. No additional acute fractures are identified. Anatomic alignment is maintained at the articular surfaces. Sacral arcuate lines appear intact and SI joints are symmetrical. There is no evidence of pubic symphyseal diastases. [id number] degenerative changes are seen in the scoliotic lumbar spine. There is prominent retained fecal material in the rectal vault. IMPRESSION: 1. Acute displaced avulsion fracture of the greater trochanter 2. Stable appearance of the right total hip prosthesis in place. 3. Fecal impaction. .
--- NOTE | 2017-03-22 08:07 | XRay Report ---
EXAM: XR hip RT min 2V LOCATION OF DICTATION: [place] HISTORY: fall/pain COMPARISON: Comparison is made with the AP view of the pelvis performed 02/04/2017 FINDINGS: The osseous structures of the bony pelvis are moderately demineralized. There is a stable right total hip prosthesis. There is an acute displaced avulsion fracture of the greater trochanter which is superiorly displaced approximately 10 mm . No additional fractures are seen. There is prominent retained fecal material in the rectal vault. IMPRESSION: 1. Acute displaced avulsion fracture of the intertrochanter. 2. The right total hip prosthesis is stable in position. 3. Fecal impaction. .
[2017-03-22] MEDS ORDERED: MORPHINE SULFATE 2 MG SYRINGE IVP ONE (08:26)
--- NOTE | 2017-03-22 08:32 | History & Physical Report ---
Addendum entered and electronically signed by Alice Ibrahim APRN 03/22/17 09: 39: Dewey will be placed d/t severe pain with movement Discussed with Dr. Rollins - OK to eat today. Original Note: <Alice Ibrahim - Last Filed: 03/22/17 09:07> History of Present Illness Date: 03/22/17 Chief complaint: right hip pain HPI: Huong Wilkins is an 82 y/o lady with a hx of advanced dementia (A&O to self at baseline, usually knows who her , Mina, is), who was found down in her room at [facility] around 0545 after a presumed fall. She underwent right hemiarthroplasty on 02/02/[address] Rollins after falling and fracturing her hip. She was transported to [facility] ED, where x-rays showed a displaced avulsion fx of the right greater trochanter. It has been too painful to bear weight. Xrays also showed a fecal impaction and Mina stated that she typically has constipation. Labs showed stable hgb, mild hypernatremia (148), normal renal function. UA was ordered and pending. EKG was sinus. Both Dr. Rollins and Dr. Schwartz were consulted from the ED and the patient was placed into observation status under the medical team with consultation to ortho. ROS was severely limited, but Mina reported that she's been in her typical state of health. She tends to have problems with constipation. He denies any recent illness since her right hip fx in February; no fevers/chills, cough/congestion, dysphagia, nausea or vomiting or changes in appetite, urinary retention, leg swelling, or problems breathing. When she is in a new environment or under stress i.e. in pain, she tends to become more confused and may refuse cares. Review of Systems ROS unobtainable: due to mental status Review of systems: See HPI PFSH Alzheimer's Dementia HTN Hypothyroidism Hx UTI Surgical History: Right hip replacement 02/02/17. Cholecystectomy Family History: Mother - CHF Father in a farm accident in his 60s - Social History Smoking status: Never smoker Substance use type: does not use Alcohol intake frequency: does not drink Household members: spouse Current residence: [facility] Social history: PCP - [facility] Medications Home Medications Medication Instructions Recorded Confirmed Type Gabapentin [Neurontin] 100 mg PO TID #0 09/25/15 03/22/17 History Memantine [Namenda] 10 mg PO BID #0 09/25/15 03/22/17 History Propranolol HCl 10 mg PO BID #0 09/25/15 03/22/17 History Polyethylene Glycol 3350 [Miralax] 17 g PO BID #0 10/08/15 03/22/17 History Sennosides/Docusate Sodium [Sm 1 tab PO BID #0 10/08/15 03/22/17 History Senna-S Tablet] Cranberry Fruit Extract [Cranberry] 405 mg PO BID #0 02/19/16 03/22/17 History Mirtazapine 15 mg PO HS #0 02/19/16 03/22/17 History Divalproex Sprinkle [Depakote 250 mg PO BID #0 05/20/16 03/22/17 History Sprinkle] Potassium Chloride 10 meq PO DAILY #0 05/20/16 03/22/17 History Diclofenac Sodium [Voltaren] 1 applic TOP QID #0 tub 02/01/17 03/22/17 History Hydrocodone/Acetaminophen 1 tab PO Q4HR PRN #0 tab 02/01/17 03/22/17 History [Hydrocodon-Acetaminoph 7.5-325] Levothyroxine Tab [Synthroid] 50 mcg PO ACB #0 tab 02/01/17 03/22/17 History Quetiapine Fumarate [Seroquel] 37.5 mg PO HS AND NOON #0 tab 02/01/17 03/22/17 History Quetiapine Fumarate [Seroquel] 50 mg PO DAILY #0 tab 02/01/17 03/22/17 History Allergies Allergy/AdvReac Type Severity Reaction Status Date / Time Penicillins Allergy Unknown Verified 03/22/17 09:34 Chocolate Allergy Mild Headache Uncoded 03/22/17 09:34 Exam Vital Signs: Temp Pulse Resp BP Pulse Ox 98.1 F 94 16 199/86 H 98 03/22/17 06:50 03/22/17 06:50 03/22/17 06:50 03/22/17 06:50 03/22/17 06:50 Height: 1.6 m Weight: 53.9 kg - Constitutional Present: no acute distress, well nourished, thin, other (Huong pushed my hand and stethoscope away each time it came close to her chest or abdomen) - Routine HEENT Exam Head: Present: normocephalic, atraumatic Eye: Present: PERRL. Absent: conjunctival icterus ENT: Present: mucous membranes moist, oropharynx clear - Routine Neck Exam Present: supple, trachea midline - Routine Respiratory Exam Present: CTA bilaterally - Routine Cardiovascular Exam Present: S1, S2 - Routine Abdominal Exam Present: non distended - Routine Extremities Exam Present: no edema, pulses intact, normal capillary refill - Routine Skin Exam Present: intact, dry, warm - Routine Neurological Exam Present: alert. Absent: oriented X3 - Routine Psychiatric Exam Absent: normal thought process Results - Labs CBC & Chem 7: 03/22/17 07:07 03/22/17 07:07 Assessment and Plan (1) Fracture of greater trochanter of right femur Current visit: Yes Status: Acute (2) Hypernatremia Current visit: Yes Status: Acute (3) Fecal impaction Current visit: Yes Status: Acute (4) Alzheimer's dementia Current visit: Yes Status: Chronic DVT Prophylaxis: SCD's Resuscitation Status: Do Not Resuscitate Assessment and Plan: Admit, observation status under the hospitalist service. Rt greater trochanter fx -consult Dr. Rollins - notified from ED -had right hemiarthroplasty 02/02/[address] Rollins -NPO status Hypernatremia -IVF: 1/2 NS @ 100 ml/hr -Monitor electrolytes - otherwise stable Fecal impaction -Fleet's -bowel regimen -monitor for urinary retention - bladder scan as needed -may need Dewey Dementia -Baseline: A&O to self only -hx of delirium -Haldol PRN Advanced directives -DNR D/W Dr. Schwartz. Sepsis Assessment - Focused Exam Vital Signs Temp Pulse Resp BP Pulse Ox 03/22/17 06:50 98.1 F 94 16 199/86 H 98 Hospital Course Summary Disclaimer: The visit summary below is not to be considered part of the above Progress Note. Hospital Course: 03/22/17 09:15 Admit, observation status under the hospitalist service. Rt greater trochanter fx -consult Dr. Rollins - notified from ED -had right hemiarthroplasty 02/02/[address] Rollins -NPO status Hypernatremia -IVF: 1/2 NS @ 100 ml/hr -Monitor electrolytes - otherwise stable Fecal impaction -Fleet's -bowel regimen -monitor for urinary retention - bladder scan as needed -may need Dewey Dementia -Baseline: A&O to self only -hx of delirium -Haldol PRN Advanced directives -DNR <Thiago Schwartz - Last Filed: 03/22/17 12:12> History of Present Illness Date: 03/22/17 [facility] Patient Stated Medical History Alzheimer's Disease Yes Dementia Yes Hypertension Yes Rheumatic Fever Yes Hx Urinary Tract Infection Yes Other Behavioral Health Yes: Hallucinations, Agitation Exam Vital Signs: Temp Pulse Resp BP Pulse Ox 97.7 F 102 H 20 189/94 H 97 03/22/17 09:20 03/22/17 09:30 03/22/17 09:20 03/22/17 09:30 03/22/17 09:20 Height: 1.6 m Weight: 51.6 kg Results - Labs CBC & Chem 7: 03/22/17 07:07 03/22/17 07:07 Assessment and Plan (1) Fracture of greater trochanter of right femur Current visit: Yes Status: Acute (2) Unwitnessed fall Current visit: Yes Status: Acute (3) Hypernatremia Problem details: POA Current visit: Yes Status: Acute (4) Fecal impaction Problem details: POA Current visit: Yes Status: Acute (5) Alzheimer's dementia Current visit: Yes Status: Chronic (6) HTN (hypertension) Current visit: Yes Status: Chronic (7) Hypothyroidism Current visit: Yes Status: Chronic Assessment and Plan: Have independently interviewed and examined pt. Chart reviewed. Case discussed with ED physician, pt's , and my PICKLE PUMPER. Care plan developed with my supervision; agree with above. Presents to ED secondary to right hip pain after being found on ground at her care facility-presumed fall. Having significant pain with movements and not able to bear weight. Recent admission for right hip fracture. report recovery has gone very well-2 weeks after returning to her long-term she was able to be ambulatory without pain or problems. Appetite has been stable. Stools slow. Breathing has been doing well. Pt's dementia limits ability to obtain accurate and detailed ROS from patient. In ED, found to have Fx of right greater trochanter. Placed in OBS for pain control and further ortho evaluation and treatment recommendations. CV: regular Lungs: clear bilaterally; no crackles, wheezes or distress AB: soft nt/nd BS present EXT: no edema, SCD in place. Normal radial pulses bilaterally MSE: awake alert, communicates with jiberish at times. Gen: currently looks comfortable at rest. Plan: OBS, Ortho consult, Pain control, 1/2NS to help correct sodium, disimpact bowel, continue home medications, monitor lab, JOSÉ LUIS as per her previous requests. Sepsis Assessment - Focused Exam Vital Signs Temp Pulse Resp BP Pulse Ox 03/22/17 09:30 102 H 189/94 H 03/22/17 09:20 97.7 F 100 20 220/100 H 97 03/22/17 09:00 90 16 170/67 H 98 03/22/17 08:30 92 16 181/84 H 96 03/22/17 08:19 178/77 H Hospital Course Summary Disclaimer: The visit summary below is not to be considered part of the above Progress Note.
[2017-03-22] MEDS ORDERED: ONDANSETRON 4 MG/2 ML INJECTION IVP PRN (08:48)
[2017-03-22] MEDS ORDERED: SENNA + DOCUSATE TABLET PO SCH (09:00)
[2017-03-22] MEDS ORDERED: FLEET PHOSPHO - SODA ENEMA 133ml PR PRN (09:09)
[2017-03-22] MEDS: QUETIAPINE 50 MG TABLET PO SCH (09:37)
[2017-03-22] MEDS: 1/2 NS 1,000 ML IV SCH ×2 (10:06→21:16)
[2017-03-22] MEDS: MORPHINE SULFATE 2 MG SYRINGE IVP PRN ×3 (11:17→19:06)
[2017-03-22] MEDS: QUETIAPINE 25 MG TABLET PO SCH ×2 (11:25→21:32)
--- NOTE | 2017-03-22 15:17 | Orthopedic Consult Note ---
Orthopedic Consultation HPI - Consultation Info Consult Date: 03/22/17 Attending Physician: Thiago Schwartz MD Consult Reason: fracture (Greater Trochanter Fracture) - History of Present Illness Found down at her shelter this morning complaining of right hip pain. Unable to bear weight. Review of Systems ROS unobtainable: due to dementia [facility] Patient Stated Medical History Alzheimer's Disease Yes Dementia Yes Hypertension Yes Rheumatic Fever Yes Hx Urinary Tract Infection Yes Other Behavioral Health Yes: Hallucinations, Agitation Surgical History: Right hip replacement 02/02/17. Cholecystectomy - Social History Current residence: [facility] Medications Home Medications Medication Instructions Recorded Confirmed Type Gabapentin [Neurontin] 100 mg PO TID #0 09/25/15 03/22/17 History Memantine [Namenda] 10 mg PO BID #0 09/25/15 03/22/17 History Propranolol HCl 10 mg PO BID #0 09/25/15 03/22/17 History Polyethylene Glycol 3350 [Miralax] 17 g PO BID #0 10/08/15 03/22/17 History Sennosides/Docusate Sodium [Sm 1 tab PO BID #0 10/08/15 03/22/17 History Senna-S Tablet] Cranberry Fruit Extract [Cranberry] 405 mg PO BID #0 02/19/16 03/22/17 History Mirtazapine 15 mg PO HS #0 02/19/16 03/22/17 History Divalproex Sprinkle [Depakote 250 mg PO BID #0 05/20/16 03/22/17 History Sprinkle] Potassium Chloride 10 meq PO DAILY #0 05/20/16 03/22/17 History Diclofenac Sodium [Voltaren] 1 applic TOP QID #0 tub 02/01/17 03/22/17 History Hydrocodone/Acetaminophen 1 tab PO Q4HR PRN #0 tab 02/01/17 03/22/17 History [Hydrocodon-Acetaminoph 7.5-325] Levothyroxine Tab [Synthroid] 50 mcg PO ACB #0 tab 02/01/17 03/22/17 History Quetiapine Fumarate [Seroquel] 37.5 mg PO HS AND NOON #0 tab 02/01/17 03/22/17 History Quetiapine Fumarate [Seroquel] 50 mg PO DAILY #0 tab 02/01/17 03/22/17 History Allergies Allergy/AdvReac Type Severity Reaction Status Date / Time Penicillins Allergy Unknown Verified 03/22/17 09:34 Chocolate Allergy Mild Headache Uncoded 03/22/17 09:34 Orthopedic Exam Vital signs: Temp Pulse Resp BP Pulse Ox 97.7 F 88 20 189/94 H 97 03/22/17 09:20 03/22/17 12:54 03/22/17 09:20 03/22/17 09:30 03/22/17 09:20 - Constitutional General Appearance: Present: alert, thin - Respiratory Exam Present: non-labored - Cardiovascular Exam Capillary Refill: < 2-3 Seconds - Extremities Exam Comments: Hold hip in flexed position. Will not range hip secondary to pain. - Hip Exam right Comments: previous posterior hip incision is well healed - Psychiatric Exam Present: alert (not oriented) - Labs Result Diagrams: 03/22/17 07:07 03/22/17 07:07 Abnormal lab results 03/22/17 Range/Units 10:13 Ur Specific [place] 1.010 L (1.015-1.025) Impression and Recommendation (1) Fracture of greater trochanter of right femur Current visit: Yes Qualifiers: Encounter type: initial encounter Fracture type: closed Fracture alignment: displaced Qualified Code(s): S72.111A - Displaced fracture of greater trochanter of right femur, initial encounter for closed fracture Status: Acute I discussed the diagnosis and treatment options with the family. I recommended a trial of nonsurgical treatment. If she does not do well with this management then we can discuss surgery at a later date. They agreed with this plan. She will be made WBAT. Hospital Course Summary Disclaimer: The visit summary below is not to be considered part of the above Progress Note. Hospital Course: 03/22/17 09:15 Admit, observation status under the hospitalist service. Rt greater trochanter fx -consult Dr. Rollins - notified from ED -had right hemiarthroplasty 02/02/[address] Rollins -NPO status Hypernatremia -IVF: 1 NS @ 100 ml/hr -Monitor electrolytes - otherwise stable Fecal impaction -Fleet's -bowel regimen -monitor for urinary retention - bladder scan as needed -may need Dewey Dementia -Baseline: A&O to self only -hx of delirium -Haldol PRN Advanced directives -DNR
[2017-03-22] MEDS: GABAPENTIN 100 MG CAPSULE PO SCH ×2 (16:00→21:33)
--- NOTE | 2017-03-22 16:56 | Operative Note ---
- Procedure Date of Admission: 03/22/17 Postoperative Diagnosis: Same as preoperative diagnosis. Operation: Procedures Replacement of Right Knee Joint with Synthetic Substitute, Cemented, Open Approach (02/01/17) Surgeon: Lacy Rollins MD Business Proposal Rep: KELLY Alejandro Complications: None. Estimated Blood Loss: See Anesthesia Record. Fluids: Please see Anesthesia Record.
[2017-03-22] MEDS: DIVALPROEX SPRINKLE 125 MG CAPSULE PO SCH (21:29)
[2017-03-22] MEDS: SENNA + DOCUSATE TABLET PO SCH (21:30)
[2017-03-22] MEDS: PROPRANOLOL 10 MG TABLET PO SCH (21:30)
[2017-03-22] MEDS: POLYETHYL GLYCOL 3350 17gm PACKET PO SCH (21:32)
[2017-03-22] MEDS: MEMANTINE 10 MG TABLET PO SCH (21:34)
[2017-03-22] MEDS ORDERED: MIRTAZAPINE 15 MG TABLET PO SCH (22:00)
[2017-03-23] MEDS: MORPHINE SULFATE 2 MG SYRINGE IVP PRN ×3 (00:22→08:06)
[2017-03-23] MEDS: 1/2 NS 1,000 ML IV SCH ×2 (05:09→07:44)
[2017-03-23] MEDS ORDERED: LEVOTHYROXINE 50 MCG TABLET PO SCH (06:30)
--- NOTE | 2017-03-23 07:16 | Orthopedic Progress Note ---
Date: Subjective/Severity of Illness: Huong had a restless night. She is requiring IV Moraphine to keep her pain controlled. She is confused, which is her baseline. Her has been by her side consistently and provides the history. Dr. Rollins has recommended non operative care and she is WBAT. [facility] as [facility] as possible. Dr. Rollins would like follow up 03/31/17 if we are able to get to a point with her pain that would allow her to discharge. Orthopedic Objective Vital signs: Temp Pulse Resp BP Pulse Ox 96.7 F L 72 18 118/79 94 03/23/17 00:35 03/23/17 00:35 03/23/17 00:35 03/23/17 00:35 03/23/17 00:35 Height and Weight: Height 5 ft 3 in Weight 113 lb 12.136 oz Body Mass Index 20.1 - Constitutional General Appearance: Present: alert, no acute distress Comments: confused secondary to dementia. - Respiratory Exam Present: non-labored - Cardiovascular Exam Present: pedal pulses intact - Abdominal Exam Present: soft - Extremities Exam Present: no edema, pulses intact, normal capillary refill - Hip Exam right Hip Exam: Present: tender over trochanter - Integumentary Exam Present: dry, intact - Neurological Exam Present: intact to light touch - Labs Result Diagrams: 03/23/17 04:29 03/23/17 04:29 Abnormal lab results 03/22/17 03/23/17 03/23/17 Range/Units 10:13 04:29 04:29 Neut % (Auto) 79.9 H (33-66) % Lymph % (Auto) 14.2 L (23-45) % Creatinine 0.6 L (0.7-1.2) MG/DL Glucose 122 H (65-110) MG/DL Ur Specific [place] 1.010 L (1.015-1.025) H & H 03/23/17 Range/Units 04:29 Hgb 12.7 (12-16) GM/DL Hct 39.1 (36-46) % Orthopedic Assessment and Plan (1) Fracture of greater trochanter of right femur Status: Acute Qualifiers: Encounter type: initial encounter Fracture type: closed Fracture alignment: displaced Qualified Code(s): S72.111A - Displaced fracture of greater trochanter of right femur, initial encounter for closed fracture Assessment and Plan: Focus on controlling pain without IV narcotics Work with PT on mobility I discussed with Mr. Wilkins these goals may take a few days Once she is ready, discharge to [facility] F/U with Dr. Rollins 03/31/17, WBAT Hospital Course Summary Disclaimer: The visit summary below is not to be considered part of the above Progress Note. Hospital Course: 03/22/17 09:15 Admit, observation status under the hospitalist service. Rt greater trochanter fx -consult Dr. Rollins - notified from ED -had right hemiarthroplasty 02/02/[address] Rollins -NPO status Hypernatremia -IVF: 1 NS @ 100 ml/hr -Monitor electrolytes - otherwise stable Fecal impaction -Fleet's -bowel regimen -monitor for urinary retention - bladder scan as needed -may need Dewey Dementia -Baseline: A&O to self only -hx of delirium -Haldol PRN Advanced directives -DNR
[2017-03-23] MEDS: DIVALPROEX SPRINKLE 125 MG CAPSULE PO SCH (08:51)
[2017-03-23] MEDS: PROPRANOLOL 10 MG TABLET PO SCH (08:52)
[2017-03-23] MEDS: GABAPENTIN 100 MG CAPSULE PO SCH ×2 (08:52→15:35)
[2017-03-23] MEDS: MEMANTINE 10 MG TABLET PO SCH (08:52)
[2017-03-23] MEDS: QUETIAPINE 50 MG TABLET PO SCH (08:53)
[2017-03-23] MEDS: POLYETHYL GLYCOL 3350 17gm PACKET PO SCH (09:15)
[2017-03-23] MEDS: SENNA + DOCUSATE TABLET PO SCH (09:15)
[2017-03-23] MEDS ORDERED: HYDROCODONE/APAP 5mg/325mg TABLET PO PRN (13:27)
--- NOTE | 2017-03-23 13:28 | Discharge Summary ---
<Alice Ibrahim D - Last Filed: 03/23/17 14:35> Discharge Information Date of admission: 03/22/17 08:03 Attending Physician: Thiago Schwartz MD Primary care physician: Mili Engle MD Consults: 03/22/17 08:53 Physician Consult [CONS] Routine Consulting Provider: Cornelio Rollins Reason For Exam: greater trochanter fx Ordering Provider has Notified Automobile Painter: Yes 03/23/17 09:26 Doctor [Physician Consult] [CONS] Routine Consulting Provider: [place] Zacarias Reason For Exam: CONT CARE Ordering Provider has Notified Automobile Painter: Yes - Discharge Diagnosis (1) Fracture of greater trochanter of right femur Qualifiers: Encounter type: initial encounter Fracture type: closed Fracture alignment: displaced Qualified Code(s): S72.111A - Displaced fracture of greater trochanter of right femur, initial encounter for closed fracture Status: Acute (2) Hypernatremia Problem Details: POA Status: Resolved (3) Fecal impaction Problem Details: POA Status: Chronic (4) Alzheimer's dementia Status: Chronic (5) Unwitnessed fall Status: Acute - Procedures Procedures: Dewey 03/22/17-03/23/17 - Laboratory Labs: 03/23/17 04:29 03/23/17 04:29 - Radiology Radiology: HIP AND PELVIS X-RAYS 1. Acute displaced avulsion fracture of the intertrochanter. 2. The right total hip prosthesis is stable in position. 3. Fecal impaction. History of Present Illness HPI: Huong Wilkins is an 82 y/o lady with a hx of advanced dementia (A&O to self at baseline, usually knows who her , Mina, is), who was found down in her room at [facility] around 0545 after a presumed fall. She underwent right hemiarthroplasty on 02/02/[address] Rollins after falling and fracturing her hip. She was transported to [facility] ED, where x-rays showed a displaced avulsion fx of the right greater trochanter. It has been too painful to bear weight. Xrays also showed a fecal impaction and Mina stated that she typically has constipation. Labs showed stable hgb, mild hypernatremia (148), normal renal function. UA was ordered and pending. EKG was sinus. Both Dr. Rollins and Dr. Schwartz were consulted from the ED and the patient was placed into observation status under the medical team with consultation to ortho. ROS was severely limited, but Mina reported that she's been in her typical state of health. She tends to have problems with constipation. He denies any recent illness since her right hip fx in February; no fevers/chills, cough/congestion, dysphagia, nausea or vomiting or changes in appetite, urinary retention, leg swelling, or problems breathing. When she is in a new environment or under stress i.e. in pain, she tends to become more confused and may refuse cares. Hospital Course Hospital course: Mrs. Wilkins was admitted to observation status on 03/22/17 for a right greater trochanter fx. Dr. Rollins was consulted and recommended nonoperative treatment - she may be WBAT, f/u on 03/31/17 in his office. She also was admitted with hypernatremia, but this resolved by the following morning, after being on 1/2 NS for the night. Regarding fecal impaction, RN reported that she had a very large bowel movement after arriving to the floor on 03/22/17. A Dewey was inserted for 2 reasons - obtain UA (which was neg) and to provide an extra layer of pain relief, since movement in the bed and propping up on a bedpan produced discomfort. While there was concern that pain control was inadequate ( needing IV narcotics q5h), her felt that once she returned back to [facility] in her usual environment she would do better - she would be calmer and more at peace, which are his goals for her. PT/OT evaluated her, and recommended ongoing therapy to help her to return to PLOF. She will require close monitoring for her safety, which is limited by cognition and pain. Huong had clear lung sounds and RRR on day of discharge; extremities were free of edema and her abdomen had positive bowel sounds and was nondistended. She was discharged back to the memory unit in stable condition with plans to f/u with both Dr. Rollins (03/31/17) and with her PCP Dr. Engle (1 week). Continue with bowel motivation. This is a general summation of the patient's hospital course. For more details, please refer to the entire medical record. Discharge Plan - Med Rec/Dispo Referrals/Follow Up: Cornelio Rollins MD [Physician] - (03/31/17) Mili Engle MD [Family Provider] - 1 Week Additional Instructions: FOLLOW UP WITH DR. ROLLINS IN 3 WEEKS. Prescriptions: New Hydrocodone/APAP 5/325 [Hunter 5/325] 1 - 2 tab PO Q4H PRN #40 PRN Reason: Pain Bisacodyl Supp [Dulcolax] 10 mg DC DAILY PRN #7 supp PRN Reason: Constipation Senna + Docusate [Senna Plus Tablet] 2 tab PO BID Lidocaine 5% Patch [Lidoderm] 1 each TRANSDERMA DAILY PRN #5 patch PRN Reason: Pain Milk of Magnesia [Mom] 30 ml PO DAILY PRN #1 bottle PRN Reason: Constipation Continue Gabapentin [Neurontin] 100 mg PO TID #0 Sennosides/Docusate Sodium [Sm Senna-S Tablet] 1 tab PO BID #0 Mirtazapine 15 mg PO HS #0 Cranberry Fruit Extract [Cranberry] 405 mg PO BID #0 Divalproex Sprinkle [Depakote Sprinkle] 250 mg PO BID #0 Quetiapine Fumarate [Seroquel] 37.5 mg PO HS AND NOON #0 tab Quetiapine Fumarate [Seroquel] 50 mg PO DAILY #0 tab Diclofenac Sodium [Voltaren] 1 applic TOP QID #0 tub Levothyroxine Tab [Synthroid] 50 mcg PO ACB #0 tab Memantine [Namenda] 10 mg PO BID #0 Propranolol HCl 10 mg PO BID #0 Polyethylene Glycol 3350 [Miralax] 17 g PO BID #0 Potassium Chloride 10 meq PO DAILY #0 Discontinued Hydrocodone/Acetaminophen [Hydrocodon-Acetaminoph 7.5-325] 1 tab PO Q4HR PRN #0 tab PRN Reason: PAIN Hydrocodone/Acetaminophen [Hunter 7.5-325 Tablet] 1 tab PO Q4H #30 tab - Disposition 04 To [facility] Home/Facility <Thiago Schwartz - Last Filed: 03/23/17 15:02> Discharge Information Date of admission: 03/22/17 08:03 Attending Physician: Thiago Schwartz MD Primary care physician: Mili Engle MD Consults: 03/22/17 08:53 Physician Consult [CONS] Routine Consulting Provider: Cornelio Rollins Reason For Exam: greater trochanter fx Ordering Provider has Notified Automobile Painter: Yes 03/23/17 09:26 Doctor [Physician Consult] [CONS] Routine Consulting Provider: Louis Zacarias Reason For Exam: CONT CARE Ordering Provider has Notified Automobile Painter: Yes - Discharge Diagnosis (1) Fracture of greater trochanter of right femur Qualifiers: Encounter type: initial encounter Fracture type: closed Fracture alignment: displaced Qualified Code(s): S72.111A - Displaced fracture of greater trochanter of right femur, initial encounter for closed fracture Status: Acute (2) Hypernatremia Problem Details: POA Status: Resolved (3) Fecal impaction Problem Details: POA Status: Chronic (4) Alzheimer's dementia Status: Chronic (5) Unwitnessed fall Status: Acute - Laboratory Labs: 03/23/17 04:29 03/23/17 04:29 Hospital Course Hospital course: Ms. Wilkins is a 82 year old female Discharge Plan - Med Rec/Dispo - Attestation Attestation Narrative: 03/23/17 14:59 Have independently interviewed and examined pt. Chart reviewed. Case discussed with CM, Pt's , and my [employer]. Care plan developed with my supervision; agree with above. Resting comfortably this afternoon-had rough night between her pain and unusual environment. at bedside. Does feel she will be more calm and comfortable once discharged. Lungs: decreased, no distress CV: regular AB: soft nt/nd Plan: Will d/c to her care facility for continued pain control. See orders for details.
--- NOTE | 2017-03-23 14:39 | Extended Care Facility Orders ---
Admission Orders Admit to:: [facility] Allergies/Adverse Reactions: Allergies Penicillins Allergy (Unknown, Verified 03/22/17 09:34) Chocolate Allergy (Mild, Uncoded 03/22/17 09:34) Headache Admitting Diagnosis: greater trochanter fx, right Admitting Physician: Thiago Schwartz MD Attending Physician: Thiago Schwartz MD Code Status: Do Not Resuscitate Anticiapted Length of Stay: 30 days or less Rehab Potential: fair Rehab Prognosis: fair Diet: Regular Diet [DIET] Fluid Consistency: SYR/NECTAR THICK Food Consistency: PUREE Comment: send Magic Cup and nectar thick liquids May use Facility Protocol or Standing Orders: Yes May have flu vaccine: Yes Snf Certification: I certify that SNF services are required to be given on an Inpatient basis because of the patient's need for group home care on a continuing basis for the condition(s) for which she received inpatient hospital services prior to her transfer to the SNF. SNF inpatient care is necessary for the following reasons Indication for Snf: Not Applicable - Additional Information In Event of Arrest: Do Not Start CPR Resident is Aware of Diagnosis: No (, Mina, in agreement.) Referrals: Mili Engle MD [Family Provider] - 1 Week Cornelio Rollins MD [Physician] - (03/31/17) Additional Orders: FOLLOW UP WITH DR. ROLLINS on 03/31/17. FOLLOW UP WITH DR. ENGLE IN 1 WEEK. Weight bear as tolerated
[2017-03-23] MEDS: QUETIAPINE 25 MG TABLET PO SCH (15:08)
== END 2017-03-23 17:15 ==
LOC: SRG 06:49 → ED 06:49 → SRG 09:00
PROVIDERS: ADMIT Hospitalist; ATTEND Hospitalist